=== PATIENT | male | born 1930 | race Caucasian/White ===

== ENCOUNTER → 2016-06-15 | Outpatient (CLI) | payer MEDICARE, OTHER ==
[2015-11-30 14:33] VITALS: BP 180/89
[~2016-06-15] MED LIST: ASCO500T2 PO; ASPI81TA50 PO; ATOR40TA59 PO; CYAN10002 IM; DOCU-27 PO; FERR325T72 PO; GLIP5TAB10 PO; LEVO100T5 PO; LISI40TA PO; LORA10TA68 PO; METF500T4 PO; METO25TA4 PO; NIAC500T PO; RIVA10TA PO; SITA100T PO
--- NOTE | 2016-06-15 17:17 | RAD ---
PA and lateral chest radiographs 06/15/2016 Clinical history: Productive cough for 3 weeks. PA and lateral digital radiographs of the chest were obtained. Comparison study is dated 06/28/2013. A pacemaker is unchanged position. The cardiac silhouette is mildly enlarged. Atherosclerotic calcification of the thoracic aorta is seen. No acute pulmonary infiltrate is noted. No pneumothorax or pleural effusion is seen. Degenerative changes are seen involving the thoracic spine. Impression: No acute pulmonary infiltrate is seen.
== END | disposition home or self-care (01) ==
LOC: DXRADRC 15:49
PROVIDERS: ATTEND Nurse Practitioner Family
DX: I70.0 Atherosclerosis of aorta (principal)
CPT/HCPCS: 71020

== ENCOUNTER 2017-04-30 10:12 | Emergency (ER) | payer MEDICARE, OTHER ==
[~2017-04-30 10:12] MED LIST changes: +DOCU-109 PO; -DOCU-27 PO
--- NOTE | 2017-04-30 10:52 | EKG ---
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
--- NOTE | 2017-04-30 11:13 | RAD ---
Chest radiograph 04/30/2017 12:46 PM Indication: Shortness of breath with weakness Comparison: Chest radiograph 06/15/2016 Technique: Single portable upright frontal view of the chest is provided. Findings: Evaluation is limited by motion. Cardiomediastinal silhouette is borderline in size, stable. Left chest wall cardiac device is in similar position.. No pleural effusions, pulmonary vascular congestion or pneumothorax. The lungs are clear. Osseous structures are normal. Impression: Evaluation is limited by motion. No acute cardiopulmonary process.
[2017-04-30 11:14] LABS: BASO # 0.1 x10^3/uL (0.0-0.2); BASO % 1 % (0-3); EOS # 0.2 x10^3/uL (0.0-0.7); EOS % 4 % (0-3); HEMATOCRIT 22.1 % (39.0-53.0); LYMPH # 0.7 x10^3/uL (1.0-4.8); LYMPH % 12 % (24-48); MEAN CORPUSCULAR HEMOGLOBIN 22 pg (25-35); MEAN CORPUSCULAR HGB CONC 30 g/dL (31-37); MEAN CORPUSCULAR VOLUME 75 fL (79-100); MONO # 0.4 x10^3/uL (0.0-1.1); MONO % 8 % (0-9); NEUT # 4.2 x10^3uL (1.8-7.7); NEUT % 75 % (31-73); PLATELET COUNT 194 x10^3/uL (140-400); RED BLOOD COUNT 2.97 x10^6/uL (4.30-5.70); RED CELL DISTRIBUTION WIDTH 18.2 % (11.5-14.5); WHITE BLOOD COUNT 5.6 x10^3/uL (4.0-11.0)
[2017-04-30 11:23] LABS: HEMOGLOBIN 6.7 g/dL (13.0-17.5)
[2017-04-30 11:35] LABS: ALBUMIN 3.4 g/dL (3.4-5.0); ALBUMIN/GLOBULIN RATIO 1.2 (1.0-1.7); CALCIUM 8.5 mg/dL (8.5-10.1); CREATININE 1.2 mg/dL (0.7-1.3); GFR 57.5; MAGNESIUM 2.2 mg/dL (1.8-2.4); POTASSIUM 4.2 mmol/L (3.5-5.1); TOTAL BILIRUBIN 0.4 mg/dL (0.2-1.0); TOTAL PROTEIN 6.3 g/dL (6.4-8.2)
--- NOTE | 2017-04-30 13:07 | PHYS DOC ---
Past History Past Medical History: A-Fib, CAD, Diabetes, High Cholesterol, Hypertension, Other Past Surgical History: Pacemaker, Other Alcohol Use: None Drug Use: None Adult General Chief Complaint Chief Complaint: SHORTNESS OF BREATH HPI HPI [87-year-old male patient with multiple medical problems and history of atrial fibrillation on Xarelto and previous aortic aneurysm surgery more than 10 years ago complaining of generalized weakness and shortness of breath for the last 2 weeks. Patient states he had intermittent episodes of exertional chest pain for the last 2 weeks that last for a short time and resolved with rest. Patient denies fever and chills, vomiting, tendencies and melena, urinary symptoms, cough and congestion. Patient lives in [facility] and her daughter visited him and drove him to this area last night. Patient's daughter states he looks byrd color like the same time that he had anemia and got blood transfusion without known reason for loosing normal at [facility]. Patient denies chest pain at this time. Review of Systems Review of Systems Constitutional: Denies fever or chills, complaining of generalized weakness [] Eyes: Denies change in visual acuity, redness, or eye pain [] HENT: Denies nasal congestion or sore throat [] Respiratory: Reports shortness of breath[] Cardiovascular: No additional information not addressed in HPI [] GI: Denies abdominal pain, nausea, vomiting, bloody stools or diarrhea [] : Denies dysuria or hematuria [] Musculoskeletal: Denies back pain or joint pain [] Integument: Denies rash or skin lesions [] Neurologic: Denies headache, focal weakness or sensory changes [] Endocrine: Denies polyuria or polydipsia [] All other systems were reviewed and found to be within normal limits, except as documented in this note. Allergies Allergies Allergies Coded Allergies Type Severity Reaction Last Updated Verified No Known Drug Allergies 10/15/15 No Physical Exam Physical Exam Constitutional: Mild distress, non-toxic appearance, pale, ill looking. [] HENT: Normocephalic, atraumatic, oropharynx moist, no oral exudates, nose normal. [] Eyes: PERRLA, EOMI, conjunctiva normal, no discharge. [] Neck: Normal range of motion, no tenderness, supple, no stridor. [] Cardiovascular: Irregularly irregular heartbeat with bradycardia, no murmur [] Lungs & Thorax: Bilateral breath sounds clear to auscultation [] Abdomen: Bowel sounds normal, soft, no tenderness, no masses, no pulsatile masses. [] Skin: Warm, dry, no erythema, no rash. [] Back: No tenderness, no CVA tenderness. [] Extremities: No tenderness, no cyanosis, no clubbing, ROM intact, lower extremity edema Neurologic: Alert and oriented X 3, normal motor function, normal sensory function, no focal deficits noted. [] Psychologic: Affect normal, judgement normal, mood normal. [] Current Patient Data Lab Results Laboratory Tests Test 04/30/17 10:48 White Blood Count 5.6 x10^3/uL (4.0-11.0) Red Blood Count 2.97 x10^6/uL (4.30-5.70) L Hemoglobin 6.7 g/dL (13.0-17.5) *L Hematocrit 22.1 % (39.0-53.0) L Mean Corpuscular Volume 75 fL (79-100) L Mean Corpuscular Hemoglobin 22 pg (25-35) L Mean Corpuscular Hemoglobin Concent 30 g/dL (31-37) L Red Cell Distribution Width 18.2 % (11.5-14.5) H Platelet Count 194 x10^3/uL (140-400) Neutrophils (%) (Auto) 75 % (31-73) H Lymphocytes (%) (Auto) 12 % (24-48) L Monocytes (%) (Auto) 8 % (0-9) Eosinophils (%) (Auto) 4 % (0-3) H Basophils (%) (Auto) 1 % (0-3) Neutrophils # (Auto) 4.2 x10^3uL (1.8-7.7) Lymphocytes # (Auto) 0.7 x10^3/uL (1.0-4.8) L Monocytes # (Auto) 0.4 x10^3/uL (0.0-1.1) Eosinophils # (Auto) 0.2 x10^3/uL (0.0-0.7) Basophils # (Auto) 0.1 x10^3/uL (0.0-0.2) Platelet Estimate Pending Prothrombin Time 11.2 SEC (9.4-11.4) Prothrombin Time INR 1.1 (0.9-1.1) PTT 22 SEC (23-33) L Sodium Level 142 mmol/L (136-145) Potassium Level 4.2 mmol/L (3.5-5.1) Chloride Level 106 mmol/L (98-107) Carbon Dioxide Level 24 mmol/L (21-32) Anion Gap 12 (6-14) Blood Urea Nitrogen 18 mg/dL (8-26) Creatinine 1.2 mg/dL (0.7-1.3) Estimated GFR (Cockcroft-Gault) 57.5 BUN/Creatinine Ratio 15 (6-20) Glucose Level 226 mg/dL (70-99) H Lactic Acid Level 2.1 mmol/L (0.4-2.0) H Calcium Level 8.5 mg/dL (8.5-10.1) Magnesium Level 2.2 mg/dL (1.8-2.4) Total Bilirubin 0.4 mg/dL (0.2-1.0) Aspartate Amino Transferase (AST) 21 U/L (15-37) Alanine Aminotransferase (ALT) 17 U/L (16-63) Alkaline Phosphatase 74 U/L (46-116) Creatine Kinase 73 U/L (39-308) Creatine Kinase MB (Mass) 0.9 ng/mL (0.0-3.6) Creatine Kinase MB Relative Index 1.2 % (0-4) Troponin I Quantitative 0.055 ng/mL (0-0.055) WX-Lbt-Q-Type Natriuretic Peptide 916 pg/mL (0-449) H Total Protein 6.3 g/dL (6.4-8.2) L Albumin 3.4 g/dL (3.4-5.0) Albumin/Globulin Ratio 1.2 (1.0-1.7) Lipase 141 U/L (73-393) EKG EKG EKG interpreted by me. EKG at 1037 showed atrial fibrillation at rate of 58, few PVCs, left axis deviation, left anterior fascicular block, nonspecific intraventricular block, no acute ST and T wave abnormality Radiology/Procedures Radiology/Procedures [] [address] [address] IMAGING REPORT Signed PATIENT: CECILIO CONTRERAS ACCOUNT: [id number] : 1930 LOCATION: ER AGE: 87 SEX: M EXAM STATUS: PRE ER ORD. PHYSICIAN: MARYLOU CARIAS MD REASON: generalized weakness PROCEDURE: PORTABLE CHEST 1V Chest radiograph 04/30/2017 12:46 PM Indication: Shortness of breath with weakness Comparison: Chest radiograph 06/15/2016 Technique: Single portable upright frontal view of the chest is provided. Findings: Evaluation is limited by motion. Cardiomediastinal silhouette is borderline in size, stable. Left chest wall cardiac device is in similar position.. No pleural effusions, pulmonary vascular congestion or pneumothorax. The lungs are clear. Osseous structures are normal. Impression: Evaluation is limited by motion. No acute cardiopulmonary process. DICTATED AND SIGNED BY: LAVELL ZAMORA MD DATE: 04/30/17 1110 CC: BROOKLYN BHAKTA APRN; MARYLOU CARIAS MD ~ Course & Med Decision Making Course & Med Decision Making Pertinent Labs and Imaging studies reviewed. (See chart for details) Evaluation of patient in ER showed 87-year-old female patient with history of atrial flutter patient on Xarelto and previous anemia brought in because of weakness for 2 weeks with episodes of shortness of breath and chest pain. Patient was pale and had hemoglobin of 6.7. Patient's family requesting transferring to [facility]. Dr. Gruber accepted transfer to [facility] at 1153. Dragon Disclaimer Dragon Disclaimer This electronic medical record was generated, in whole or in part, using a voice recognition dictation system. Departure Departure: Impression: Primary Impression: Severe anemia Additional Impressions: Generalized weakness Atrial fibrillation Elevated lactic acid level Uncontrolled diabetes mellitus Disposition: [facility] (At 1153) Condition: GUARDED Referrals: BROOKLYN BHAKTA APRN (PCP) Problem Qualifiers MARYLOU CARIAS MD Apr 30, 2017 13:07
[2017-04-30 13:28] LABS: PLT ESTIMATE ADEQUATE (ADEQUATE)
[2017-04-30 13:29] LABS: HYPOCHROMIA MOD; OVALOCYTES FEW; POIKILOCYTOSIS MOD; POLYCHROMASIA MOD
[2017-04-30 13:30] LABS: TEAR DROP CELLS OCC
[2017-04-30 13:32] LABS: ANISOCYTOSIS MOD; MICROCYTOSIS MOD
[2017-05-01 10:55] VITALS: BP 164/70
== END 2017-04-30 12:35 | disposition short-term general hospital (02) ==
LOC: ER 10:12
DX: D64.9 Anemia, unspecified (principal); R53.1 Weakness; R74.0 Nonspecific elevation of levels of transaminase and lactic acid dehydrogenase [LDH]; I48.91 Unspecified atrial fibrillation; E11.9 Type 2 diabetes mellitus without complications; I25.10 Atherosclerotic heart disease of native coronary artery without angina pectoris; I10 Essential (primary) hypertension; E78.00 Pure hypercholesterolemia, unspecified; Z95.0 Presence of cardiac pacemaker; Z79.01 Long term (current) use of anticoagulants
CPT/HCPCS: 36415; 71045; 80053; 82553; 83605; 83690; 83735; 83880; 84484; 85025; 85610; 85730; 86850; 86900; 86901; 93005; 99285-25

== ENCOUNTER 2017-06-02 15:57 | Inpatient (IN) | payer MEDICARE, OTHER ==
[~2017-06-02] VITALS: Ht 167.6 cm; Wt 93.1 kg
[2017-06-02] MEDS ORDERED: PANTOPRAZOLE IV 40 MG VIAL. IVP ONE (17:00)
--- NOTE | 2017-06-02 17:00 | PHYS DOC ---
Past History Past Medical History: Diabetes, High Cholesterol, Hypertension, Hyperthyroid, Other Past Surgical History: Pacemaker, Other Alcohol Use: None Drug Use: None Adult General Chief Complaint Chief Complaint: ABNORMAL LABS HPI HPI 87-year-old male patient with multiple medical problems and history of atrial fibrillation and previous aortic aneurysm surgery more than 10 years ago sent from his primary care physician office because of hemoglobin of 6.3. Patient was seen in this emergency room on April 10 and transferred to [facility]. Request of family members because of hemoglobin of 6.7 and had blood transfusion and EGD that showed nonactive bleeding of duodenal ulcer and treated Helicobacter infection. Patient complaining of having black stool and generalized weakness with exertion without vomiting blood, chest pain, shortness of breath. Review of Systems Review of Systems Constitutional: Denies fever or chills [] Eyes: Denies change in visual acuity, redness, or eye pain [] HENT: Denies nasal congestion or sore throat [] Respiratory: Denies cough or shortness of breath [] Cardiovascular: No additional information not addressed in HPI [] GI: Denies abdominal pain, nausea, vomiting, reports bloody stools] : Denies dysuria or hematuria [] Musculoskeletal: Denies back pain or joint pain [] Integument: Denies rash or skin lesions [] Neurologic: Denies headache, focal weakness or sensory changes [] Endocrine: Denies polyuria or polydipsia [] All other systems were reviewed and found to be within normal limits, except as documented in this note. Current Medications Current Medications Current Medications Medications (Trade) Dose Ordered Sig/Jessica Start Time Stop Time Status Last Admin Dose Admin Pantoprazole Sodium (Protonix Vial) 80 mg 1X ONCE 06/02/17 17:00 06/02/17 17:01 Allergies Allergies Allergies Coded Allergies Type Severity Reaction Last Updated Verified No Known Drug Allergies 10/15/15 No Physical Exam Physical Exam Constitutional: Mild distress, non-toxic appearance, pallor. [] HENT: Normocephalic, atraumatic, bilateral external ears normal, oropharynx moist, no oral exudates, nose normal. [] Eyes: PERRLA, EOMI, conjunctiva pale, no discharge. [] Neck: Normal range of motion, no tenderness, supple, no stridor. [] Cardiovascular:Heart rate regular rhythm, no murmur [] Lungs & Thorax: Bilateral breath sounds clear to auscultation [] Abdomen: Bowel sounds normal, soft, no tenderness, no masses, no pulsatile masses. [] Skin: Warm, dry, no erythema, no rash. [] Back: No tenderness, no CVA tenderness. [] Extremities: No tenderness, no cyanosis, no clubbing, ROM intact,bilateral lower extremity 1+ edema Neurologic: Alert and oriented X 3, normal motor function, normal sensory function, no focal deficits noted. [] EKG EKG EKG interpreted by me. EKG at 1645 showed a regular rhythm with no P waves, right andres axis, low voltage, nonspecific intraventricular block, no acute ST and T wave abnormality[] Radiology/Procedures Radiology/Procedures [] Course & Med Decision Making Course & Med Decision Making Pertinent Labs reviewed. (See chart for details) Additional patient in ER showed 87-year-old male patient sent from primary care physician office because of hemoglobin of 6.3. Patient had history of recent hospitalization because of anemia and duodenal ulcer without active bleeding. Dr. Pratt was informed at 1640 and agreed with plan of admission and blood transfusion. [] Dragon Disclaimer Dragon Disclaimer This electronic medical record was generated, in whole or in part, using a voice recognition dictation system. Departure Departure: Disposition: ADMITTED INPATIENT (At 1728) Admitting Physician: Gualberto Pratt Condition: STABLE Referrals: BROOKLYN BHAKTA APRN (PCP) MARYLOU CARIAS MD Jun 02, 2017 17:00
[2017-06-02 17:18] LABS: ALBUMIN 3.4 g/dL (3.4-5.0); ALBUMIN/GLOBULIN RATIO 1.1 (1.0-1.7); CALCIUM 8.8 mg/dL (8.5-10.1); CREATININE 1.3 mg/dL (0.7-1.3); GFR 52.5; POTASSIUM 4.1 mmol/L (3.5-5.1); TOTAL BILIRUBIN 0.4 mg/dL (0.2-1.0); TOTAL PROTEIN 6.5 g/dL (6.4-8.2)
--- NOTE | 2017-06-02 17:29 | EKG ---
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
[2017-06-02 19:10] VITALS: BP 188/73
[2017-06-02] MEDS ORDERED: LEVO175T5 PO (20:03)
[2017-06-02] MEDS ORDERED: PANT40TA5 PO (20:03)
[2017-06-02] MEDS ORDERED: LISI-334 PO (20:04)
[2017-06-02] MEDS ORDERED: METF500T4 PO (20:04)
[2017-06-02] MEDS ORDERED: ISOS30TA4 PO (20:06)
[2017-06-02] MEDS ORDERED: RIVA10TA PO (20:06)
[2017-06-02 20:21] VITALS: BP 171/61
[2017-06-02] MEDS ORDERED: diphenhydrAMINE HCL 25 MG CAPSULE PO PRN (20:30)
[2017-06-02] MEDS ORDERED: ACETAMINOPHEN 325 MG TABLET PO PRN (20:30)
[2017-06-02] MEDS ORDERED: PANTOPRAZOLE 40 MG TABLET. PO SCH (21:00)
[2017-06-02] MEDS: METOPROLOL TART IMMED RELEASE 25 MG TABLET PO SCH (21:06)
[2017-06-02] MEDS: ATORVASTATIN CALCIUM 20 MG TABLET PO SCH (21:06)
[2017-06-02] MEDS: glipiZIDE 5 MG TABLET PO SCH (21:07)
[2017-06-02 21:46] VITALS: BP 176/56
[2017-06-02 22:16] VITALS: BP 156/59
[2017-06-02 23:13] VITALS: BP 159/58
[2017-06-02 23:16] VITALS: BP 159/58
[2017-06-03] VITALS (10 sets, daily range): BP systolic 130–176; BP diastolic 48–74
[2017-06-03 00:34] LABS: BILIRUBIN,URINE NEG (NEG); CLARITY,URINE CLEAR; COLOR,URINE YELLOW; GLUCOSE,URINE 100 mg/dL (NEG)
[2017-06-03 00:35] LABS: BACTERIA,URINE 0 /HPF (0-FEW); NITRITE,URINE NEG (NEG); RBC,URINE RARE /HPF (0-2); UROBILINOGEN,URINE 0.2 mg/dL (0.2 mg/dL); WBC,URINE OCC /HPF (0-4)
[2017-06-03 06:51] LABS: BASO # 0.1 x10^3/uL (0.0-0.2); BASO % 1 % (0-3); EOS # 0.3 x10^3/uL (0.0-0.7); EOS % 3 % (0-3); HEMATOCRIT 25.6 % (39.0-53.0); HEMOGLOBIN 8.1 g/dL (13.0-17.5); LYMPH # 0.6 x10^3/uL (1.0-4.8); LYMPH % 7 % (24-48); MEAN CORPUSCULAR HEMOGLOBIN 25 pg (25-35); MEAN CORPUSCULAR HGB CONC 32 g/dL (31-37); MEAN CORPUSCULAR VOLUME 81 fL (79-100); MONO # 0.6 x10^3/uL (0.0-1.1); MONO % 7 % (0-9); NEUT # 7.5 x10^3uL (1.8-7.7); NEUT % 83 % (31-73); PLATELET COUNT 205 x10^3/uL (140-400); RED BLOOD COUNT 3.18 x10^6/uL (4.30-5.70)
[2017-06-03 07:05] LABS: ALBUMIN 3.4 g/dL (3.4-5.0); ALBUMIN/GLOBULIN RATIO 1.1 (1.0-1.7); CALCIUM 8.7 mg/dL (8.5-10.1); CREATININE 1.4 mg/dL (0.7-1.3); GFR 48.2; POTASSIUM 4.4 mmol/L (3.5-5.1); TOTAL BILIRUBIN 0.8 mg/dL (0.2-1.0); TOTAL PROTEIN 6.6 g/dL (6.4-8.2)
[2017-06-03] MEDS: LEVOTHYROXINE 175 MCG TABLET PO SCH (08:01)
[2017-06-03] MEDS: LINAGLIPTIN 5 MG TABLET PO SCH (08:02)
[2017-06-03] MEDS: LISINOPRIL 20 MG TABLET PO SCH (08:03)
[2017-06-03] MEDS: CETIRIZINE HCL 10 MG TABLET PO SCH (08:05)
[2017-06-03] MEDS: ISOSORBIDE MONONITRATE ER 30 MG TAB.ER.24H PO SCH (08:05)
[2017-06-03] MEDS: METOPROLOL TART IMMED RELEASE 25 MG TABLET PO SCH ×2 (08:06→20:03)
[2017-06-03] MEDS: PANTOPRAZOLE 40 MG TABLET. PO SCH ×2 (08:07→20:03)
[2017-06-03] MEDS: glipiZIDE 5 MG TABLET PO SCH ×2 (08:08→20:03)
[2017-06-03] MEDS: FERROUS SULFATE 325 MG TABLET. PO SCH (08:08)
[2017-06-03] MEDS: metFORMIN 500 MG TABLET PO SCH ×2 (08:08→17:11)
--- NOTE | 2017-06-03 13:15 | HP ---
ADMIT DATE: 06/03/2017 HISTORY OF PRESENT ILLNESS: The patient is an 87-year-old male patient, who apparently was seen at his primary care physician's office and was found to be anemic with a hemoglobin of 6.3, hematocrit 20.5. He is on Xarelto and aspirin and he was evaluated in the Emergency Room and was admitted. We held his Xarelto and aspirin and we typed and crossed and we planned to transfuse 2 units' of blood. The patient himself denied any complaint; however, he did complain eventually that he is having black stool and generalized weakness with exertion without vomiting blood, chest pain or shortness of breath. PAST MEDICAL HISTORY: His past medical history is significant for hypertension, hyperlipidemia, coronary artery disease, atrial fibrillation, gastritis, hemorrhoids, chronic constipation, anemia, low back pain, type 2 diabetes. PAST SURGICAL HISTORY: Past surgical history is significant for abdominal aortic aneurysm repair and endoscopy x 2. FAMILY HISTORY: Unremarkable. SOCIAL HISTORY: He lives with his daughter for 6 months of the year and the other 6 months he lives in [place] on his own. He does not drink alcohol or use recreational drugs. He quit smoking about 30 years ago. He smoked 35-pack per year. REVIEW OF SYSTEMS: As per history of present illness. The patient did complain of generalized weakness and melena stool, but denied any chest pain, shortness of breath, hematemesis or hematochezia. Denied any blurring of vision, cataract, glaucoma or macular degeneration. Denied any earache, tinnitus or sensorineural deafness. Denied any nosebleeds, stuffy nose or postnasal drip. Denied any sore throat, sore tongue, toothache, hoarseness of voice, difficulty swallowing. Denied any nausea, vomiting, diarrhea or constipation. Denied any hematemesis. Did complain of melena. Denied any dysuria, frequency or hematuria. Denied any chest pain, shortness of breath, cough, phlegm or hemoptysis. Denied any dizziness, lightheadedness. Did complain of generalized weakness. PHYSICAL EXAMINATION: GENERAL: On arrival to the Emergency Room, he was pale, but no jaundice, cyanosis, or thyromegaly. No jugular venous distension. No limb edema. VITAL SIGNS: Her heart rate was 56, blood pressure was ____, temperature was 99.4, respiratory rate was 19, and oxygen saturation was 100% on 2 liters of oxygen. HEAD, EYES, EARS, NOSE AND THROAT: Showed normocephalic, atraumatic. NECK: Supple. HEART: Showed normal first and second heart sounds with no gallop, rub or murmur. CHEST: Clear to auscultation. No crepitation or rhonchi. ABDOMEN: Was distended, soft, nontender. No guarding or rigidity. No organomegaly. Hernial orifice was intact. Bowel sounds normal. NEUROLOGIC: He was somewhat hard of hearing, otherwise all cranial nerves were intact. EXTREMITIES: He moves extremities without difficulty, ambulates without assistance or assistive devices. LABORATORY DATA: His lab work was done at his primary care physician's office showed that his white cell count was 7300, hemoglobin 6.3, hematocrit 20.5, MCV 77 and platelet count 237,000. MEDICATIONS: The patient is on following medications: He is on loratadine 10 mg once a day, ferrous sulfate 325 mg daily with breakfast, Xarelto 20 mg once a day, atorvastatin calcium 40 mg at bedtime, isosorbide mononitrate 30 mg extended release once a day, metoprolol tartrate 25 mg p.o. b.i.d., lisinopril 20 mg daily, aspirin 81 mg once a day, Protonix sodium 40 mg twice a day, metformin 500 mg twice a day, sitagliptin for Januvia 100 mg once a day, glipizide 5 mg twice a day, levothyroxine sodium 175 mcg daily. ASSESSMENT: So, in summary, this is an 87-year-old male patient, who was originally seen at his primary care physician and found to be anemic with the hemoglobin of 6.3, hematocrit 20.5. He is on Xarelto and aspirin. Apparently, he has similar episode recently where he was admitted to [facility] and was extensively investigated by both upper and lower gastrointestinal endoscopy. Basically, he was seen on 04/10/2017. At that time, he was transferred to [facility] at the family request. At that time, his hemoglobin was 6.7 and he received blood transfusion. EGD that showed no active bleeding, duodenal ulcer and was treated for Helicobacter pylori infection. PLAN: My plan is to type and cross 2 units of blood and transfuse repeat his labs and contact and will monitor his H and H and make sure that it is stable. I believe his indication for his anticoagulation is atrial fibrillation. I will contact his pharmacy tech customer service to see whether it is worthwhile continuing with Xarelto given that he now has a second episode of significant GI bleed. RUEL VALADEZ MD DR: HEATHER/vita JOB#: [id number] / [id number]
[2017-06-03 16:59] LABS: HEMATOCRIT 24.3 % (39.0-53.0); HEMOGLOBIN 7.6 g/dL (13.0-17.5)
[2017-06-03] MEDS: ATORVASTATIN CALCIUM 20 MG TABLET PO SCH (20:03)
[2017-06-03] MEDS: APIXABAN 5 MG TABLET. PO SCH (20:03)
--- NOTE | 2017-06-04 00:32 | PN ---
DATE: 06/03/2017 SUBJECTIVE: The patient is resting flat, comfortably in bed, in no apparent distress. Awake, alert. On questioning him, he denied any complaint. Nursing staff did not voice any concerns ____. He did receive 2 units of packed RBCs. PHYSICAL EXAMINATION: GENERAL: When I examined him, he was resting flat, comfortably in no apparent distress. VITAL SIGNS: His heart rate was 65, blood pressure 148/67, temperature was 98.1, respiratory rate was 18 and oxygen saturation was 98%. HEAD, EYES, EARS, NOSE AND THROAT: Normocephalic, atraumatic. NECK: Supple. HEART: Showed normal first and second sounds. No gallop, rub or murmur. CHEST: Clear to auscultation. No crepitation or rhonchi. ABDOMEN: Distended, soft, nontender. No guarding or rigidity. No organomegaly. Hernial orifice intact. Bowel sounds normal. NEUROLOGIC: He was awake, alert, responding appropriately. Cranial nerves intact. He moves extremities without difficulty, ambulates without assistance or assistive devices. His intake was 560, output was 700. LABORATORY DATA: As of this morning showed a white cell count of 9000, hemoglobin 8, hematocrit 26, MCV 81 and platelet count of 205,000. His serum sodium was 143, potassium 4.4, chloride 109, bicarbonate 24, anion gap of 10, BUN 25, creatinine 1.4, estimated GFR was 48 mL per minute. His glucose is 253, calcium was 8.7. Total bilirubin, AST, ALT, alkaline phosphatase were normal. Total protein 6.6, albumin was 3.4. His prothrombin time was 18.5, INR 1.8, ____ was 53. Urinalysis was essentially unremarkable. ASSESSMENT: In summary, this is an 87-year-old male patient who basically came with yet again another episode of GI bleed with acute blood loss anemia with a hemoglobin on admission of 6.3 as measured at his primary care physician's office. He received 2 units of packed RBCs. He is on Xarelto and aspirin. This is his second episode of anemia and he was investigated before at [facility] with the upper GI endoscopy. He was treated for Helicobacter pylori at that time. PLAN: My plan is to contact his daughter to find more information about his physician who treated him at [facility], specifically can speak with his wig maker to see whether Xarelto is really necessary given that this is second episode of bleeding. RUEL VALADEZ MD DR: HEATHER/vita JOB#: [id number] / [id number]
[2017-06-04 05:56] VITALS: BP_SYST 150; BP_SYST 158; BP_DIAS 63; BP_DIAS 72
[2017-06-04 06:10] LABS: CALCIUM 8.4 mg/dL (8.5-10.1); CREATININE 1.2 mg/dL (0.7-1.3); GFR 57.5; POTASSIUM 4.1 mmol/L (3.5-5.1); TOTAL BILIRUBIN 0.8 mg/dL (0.2-1.0); TOTAL PROTEIN 5.9 g/dL (6.4-8.2)
[2017-06-04 06:30] LABS: HEMATOCRIT 23.8 % (39.0-53.0); HEMOGLOBIN 7.6 g/dL (13.0-17.5); RED BLOOD COUNT 3.01 x10^6/uL (4.30-5.70); RED CELL DISTRIBUTION WIDTH 20.4 % (11.5-14.5); WHITE BLOOD COUNT 8.9 x10^3/uL (4.0-11.0)
[2017-06-04] MEDS: LEVOTHYROXINE 175 MCG TABLET PO SCH (07:52)
[2017-06-04] MEDS: FERROUS SULFATE 325 MG TABLET. PO SCH (07:52)
[2017-06-04] MEDS: metFORMIN 500 MG TABLET PO SCH (07:52)
[2017-06-04] MEDS: APIXABAN 5 MG TABLET. PO SCH (09:15)
[2017-06-04] MEDS: CETIRIZINE HCL 10 MG TABLET PO SCH (09:16)
[2017-06-04] MEDS: LINAGLIPTIN 5 MG TABLET PO SCH (09:16)
[2017-06-04] MEDS: PANTOPRAZOLE 40 MG TABLET. PO SCH (09:16)
[2017-06-04] MEDS: glipiZIDE 5 MG TABLET PO SCH (09:16)
[2017-06-04] MEDS: METOPROLOL TART IMMED RELEASE 25 MG TABLET PO SCH (09:21)
[2017-06-04] MEDS ORDERED: APIX5TAB3 PO (11:04)
[2017-06-04] MEDS: ISOSORBIDE MONONITRATE ER 30 MG TAB.ER.24H PO SCH (11:06)
[2017-06-04] MEDS: LISINOPRIL 20 MG TABLET PO SCH (11:07)
[2017-06-04 11:08] VITALS: BP 145/60
--- NOTE | 2017-06-04 13:25 | DS ---
DATE OF DISCHARGE: 06/04/2017 HOSPITAL COURSE: The patient is resting almost flat in bed, sleeping comfortably, in no apparent distress. On questioning him, he denied any complaint. Nursing staff did not voice any concern, stated that he has an uneventful night. The patient denied any nausea, vomiting, diarrhea or constipation. Denied any hematemesis, melena or hematochezia. His hemoglobin remained stable after receiving 2 units of packed RBCs. PHYSICAL EXAMINATION: GENERAL: When I examined him this morning, he was pale, but no jaundice, cyanosis or thyromegaly. No jugular venous distension. No limb edema. VITAL SIGNS: Her heart rate was 61, blood pressure was 116/43, temperature was 98.2, respiratory rate was 16, and oxygen saturation was 93% on room air. HEENT: Showed normocephalic, atraumatic. NECK: Supple. HEART: Showed normal first and second heart sounds with no gallop, rub or murmur. CHEST: Clear to auscultation. No crepitation or rhonchi. ABDOMEN: Distended, soft, nontender. No guarding or rigidity. No organomegaly. Hernial orifice intact. Bowel sounds normal. NEUROLOGIC: He was awake, alert, responding appropriately. Cranial nerves intact. He moves extremities without difficulty, ambulates without assistance or assistive devices. His intake was 2040, output was 500. LABORATORY DATA: As of this morning, his white cell count was 8900, hemoglobin 7.6, hematocrit 23.8, MCV 79 and platelet count of 172,000. His chemistry showed a serum sodium 141, potassium 4.1, chloride 109, bicarbonate 19, anion gap of 13, BUN 21, creatinine 1.2, estimated GFR was 57 mL per minute. His glucose 115, calcium was 8.4. Total bilirubin, AST, ALT, alkaline phosphatase were normal. Total protein was 5.9, albumin was 3. His prothrombin time was 18.5, INR 1.8, aPTT was 33. Urinalysis was unremarkable. DISCHARGE MEDICATIONS: The patient will be discharged home to continue on following medication: Apixaban 5 mg twice a day, atorvastatin calcium 40 mg at bedtime, ferrous sulfate 325 mg daily with breakfast, glipizide 5 mg p.o. b.i.d., isosorbide mononitrate (Imdur) 30 mg once a day, levothyroxine 175 mcg once a day, lisinopril 20 mg daily, loratadine (Claritin) 10 mg once a day, metformin 500 mg twice a day with meals, metoprolol tartrate 25 mg twice a day, Protonix 40 mg twice a day, sitagliptin phosphate (Januvia) 100 mg daily. I stopped his aspirin and rivaroxaban as recommended by Dr. Seth, the purifying plant operator. FINAL DISCHARGE DIAGNOSES: Acute blood loss anemia, status post transfusion 2 units of packed RBCs. He has multiple other medical problems including hypertension, hyperlipidemia, coronary artery disease, atrial fibrillation, gastritis, chronic constipation, type 2 diabetes mellitus and low back pain. The patient should follow with his plastics engineering teacher and the Gastroenterology office is arranging for him to be seen sooner than the previously arranged appointment. RUEL VALADEZ MD DR: HEATHER/vita JOB#: [id number] / [id number]
--- NOTE | 2017-06-04 22:12 | PN ---
DATE: 06/03/2017 ADDENDUM I did actually speak with his finance insurance manager, Dr. Cuello who recommended stopping Xarelto until the source of bleeding was found; however, I spoke with the command post superintendent, Dr. Seth who basically recommended to stop the Xarelto and aspirin, start him on Eliquis and to send stool for Helicobacter pylori antigen and that her office will make arrangement for him to be seen sooner than his previously arranged appointment to find out the source of bleeding. RUEL VALADEZ MD DR: HEATHER/vita JOB#: [id number] / [id number]
== END 2017-06-04 13:00 | disposition home or self-care (01) | DRG 378 ==
LOC: ER 15:57 → ICU 18:47
PROVIDERS: ADMIT Internal Medicine; ATTEND Internal Medicine
PROC: 30233N1 Transfusion of Nonautologous Red Blood Cells into Peripheral Vein, Percutaneous Approach (ICD-10-PCS; principal; 2017-06-02)
DX: K92.2 Gastrointestinal hemorrhage, unspecified (principal); D62 Acute posthemorrhagic anemia; I48.91 Unspecified atrial fibrillation; E11.9 Type 2 diabetes mellitus without complications; M54.5 Low back pain; E78.5 Hyperlipidemia, unspecified; I10 Essential (primary) hypertension; I25.10 Atherosclerotic heart disease of native coronary artery without angina pectoris; K59.09 Other constipation; Z79.01 Long term (current) use of anticoagulants; Z86.79 Personal history of other diseases of the circulatory system; Z87.891 Personal history of nicotine dependence
CPT/HCPCS: 36415; 80053; 81001; 82947; 84484; 85014; 85018; 85025; 85027; 85610; 85730; 86850; 86900; 86901; 86920; 87641; 93005; 96374; C9113; P9016; Q0163; 99285-25

== ENCOUNTER 2017-06-21 19:41 | Emergency (ER) | payer MEDICARE, OTHER ==
[~2017-06-21] VITALS: Ht 167.6 cm; Wt 90.5 kg
[~2017-06-21 19:41] MED LIST changes: +APIX5TAB3 PO; +ISOS30TA4 PO; +LEVO175T5 PO; +LISI-334 PO; +PANT40TA5 PO
--- NOTE | 2017-06-21 19:43 | ED.ADGEN ---
Past History Past Medical History: A-Fib, Anemia, CAD, Diabetes, GERD, High Cholesterol, Hypertension, Hyperthyroid, Other Past Surgical History: Pacemaker, Other Alcohol Use: None Drug Use: None Adult General Chief Complaint Chief Complaint " He was drinking the clean out for his GI - EGD and colon exam tomorrow at to see if they could find a bleeding site... for his anemia. He to be at tomorrow.. but he was vomiting... and his BP got up to 270/ 100's.. weve got medical people in the family.,.and they said bring him to the ED...." HPI HPI Patient is a 87 year old male who presents with above hx and complaints N/V while attempt to do Golyte like prep for EGD and Colon tomorrow at . Pt. previously transfused with PRBC last week. Pt. HGB was last check was 7. 9. Pt. developed Nausea and Vomiting and was unable to complete his bowel prep. Pt. was noted to have elevated HTN BP at home was 217/72 while having nausea and vomiting with prep. Pt. BP eventually 160/64 without tx. in ED. . Pt. Nausea and vomiting resolved. Pt. was found to have Hgb. of 8.8. Pt. Did have slight bump in trop. of 0.072. Pt. normally follows with Antonieta Cowan as primary. Pt has been holding his coag. meds for past two days. Review of Systems Review of Systems Constitutional: Denies fever or chills [] Eyes: Denies change in visual acuity, redness, or eye pain [] HENT: Denies nasal congestion or sore throat [] Respiratory: Denies cough or shortness of breath [] Cardiovascular: No additional information not addressed in HPI [] GI: Complaints of , nausea, vomiting and diarrhea [] : Denies dysuria or hematuria [] Musculoskeletal: Denies back pain or joint pain [] Integument: Denies rash or skin lesions [] Neurologic: Denies headache, focal weakness or sensory changes [] Endocrine: Denies polyuria or polydipsia [] All other systems were reviewed and found to be within normal limits, except as documented in this note. Family History Family History Non-contributory to presentation. Current Medications Current Medications Current Medications Medications (Trade) Dose Ordered Sig/Jessica Start Time Stop Time Status Last Admin Dose Admin Famotidine (Pepcid Vial) 20 mg 1X ONCE 06/21/17 20:45 06/21/17 20:46 DC 06/21/17 21:13 20 MG Info (Do NOT chart on this entry -- for MONITORING) 1 each PRN DAILY PRN 06/21/17 23:45 06/22/17 02:26 DC Iohexol (Omnipaque 240 Mg/ml) 50 ml 1X ONCE 06/22/17 00:00 06/22/17 00:01 DC 06/22/17 00:09 50 ML Iohexol (Omnipaque 300 Mg/ml) 75 ml 1X ONCE 06/22/17 00:00 06/22/17 00:01 DC 06/22/17 00:09 75 ML Ondansetron HCl (Zofran) 8 mg 1X ONCE 06/21/17 20:45 06/21/17 20:46 DC 06/21/17 21:13 8 MG Sodium Chloride 1,000 ml @ 1,000 mls/hr Q1H 06/21/17 20:22 06/21/17 21:21 DC 06/21/17 21:13 1,000 MLS/HR Allergies Allergies Allergies Coded Allergies Type Severity Reaction Last Updated Verified No Known Drug Allergies 06/21/17 No Physical Exam Physical Exam Constitutional: mild distress, non-toxic appearance. [] HENT: Normocephalic, atraumatic, bilateral external ears normal, oropharynx dry , no oral exudates, nose normal. [] Eyes: PERRLA, EOMI, conjunctiva normal, no discharge. [] Neck: Normal range of motion, no tenderness, supple, no stridor. [] Cardiovascular: Irregular Heart rate and rhythm, no murmur [ Occasional PVC per monitor. PMI to Lt. Pacer. Lungs & Thorax: Bilateral breath sounds equal at apex on auscultation [] Abdomen: Bowel sounds hyperactive, soft, Distended, no tenderness, no masses, no pulsatile masses. [] Old scar. Skin: Warm, dry, no erythema, no rash. Pale. Back: No tenderness, no CVA tenderness. [] Extremities: No tenderness, no cyanosis, no clubbing, ROM intact, no edema. [] Arthritic changes. Neurologic: Alert and oriented X 3, normal motor function, normal sensory function, no focal deficits noted. [] Psychologic: Affect anxious, judgement normal, mood normal. [] Current Patient Data Vital Signs Vital Signs Date Time Temp Pulse Resp B/P (MAP) Pulse Ox O2 Delivery O2 Flow Rate FiO2 06/21/17 23:46 63 24 173/59 (97) 95 Room Air Lab Results Laboratory Tests Test 06/21/17 20:46 06/21/17 21:19 06/21/17 23:20 White Blood Count 8.4 x10^3/uL (4.0-11.0) Red Blood Count 3.76 x10^6/uL (4.30-5.70) L Hemoglobin 8.8 g/dL (13.0-17.5) L Hematocrit 28.9 % (39.0-53.0) L Mean Corpuscular Volume 77 fL (79-100) L Mean Corpuscular Hemoglobin 23 pg (25-35) L Mean Corpuscular Hemoglobin Concent 30 g/dL (31-37) L Red Cell Distribution Width 20.6 % (11.5-14.5) H Platelet Count 286 x10^3/uL (140-400) Neutrophils (%) (Auto) 83 % (31-73) H Lymphocytes (%) (Auto) 6 % (24-48) L Monocytes (%) (Auto) 7 % (0-9) Eosinophils (%) (Auto) 3 % (0-3) Basophils (%) (Auto) 1 % (0-3) Neutrophils # (Auto) 7.0 x10^3uL (1.8-7.7) Lymphocytes # (Auto) 0.5 x10^3/uL (1.0-4.8) L Monocytes # (Auto) 0.6 x10^3/uL (0.0-1.1) Eosinophils # (Auto) 0.3 x10^3/uL (0.0-0.7) Basophils # (Auto) 0.1 x10^3/uL (0.0-0.2) Platelet Estimate Adequate (ADEQUATE) Polychromasia Present Hypochromasia Slight Anisocytosis Mod Microcytosis Slight Tear Drop Cells Occ Ovalocytes Few Prothrombin Time 11.3 SEC (9.4-11.4) Prothrombin Time INR 1.1 (0.9-1.1) PTT 24 SEC (23-33) Sodium Level 142 mmol/L (136-145) Potassium Level 4.1 mmol/L (3.5-5.1) Chloride Level 105 mmol/L (98-107) Carbon Dioxide Level 26 mmol/L (21-32) Anion Gap 11 (6-14) Blood Urea Nitrogen 17 mg/dL (8-26) Creatinine 1.2 mg/dL (0.7-1.3) Estimated GFR (Cockcroft-Gault) 57.5 Glucose Level 107 mg/dL (70-99) H Calcium Level 9.5 mg/dL (8.5-10.1) Total Bilirubin 0.8 mg/dL (0.2-1.0) Direct Bilirubin 0.2 mg/dL (0.0-0.2) Aspartate Amino Transferase (AST) 19 U/L (15-37) Alanine Aminotransferase (ALT) 18 U/L (16-63) Alkaline Phosphatase 85 U/L (46-116) Creatine Kinase 40 U/L (39-308) Creatine Kinase MB (Mass) < 0.5 ng/mL (0.0-3.6) Creatine Kinase MB Relative Index 1.3 % (0-4) Troponin I Quantitative 0.072 ng/mL (0-0.055) H 0.061 ng/mL (0-0.055) H Total Protein 7.6 g/dL (6.4-8.2) Albumin 4.0 g/dL (3.4-5.0) Lipase 110 U/L (73-393) Urine Collection Type Unknown Urine Color Yellow Urine Clarity Hazy Urine pH 5.5 Urine Specific [place] 1.025 Urine Protein 100 mg/dl (NEG-TRACE) Urine Glucose (UA) Neg mg/dL (NEG) Urine Ketones (Stick) Neg mg/dL (NEG) Urine Blood Neg (NEG) Urine Nitrite Neg (NEG) Urine Bilirubin Neg (NEG) Urine Urobilinogen Dipstick 0.2 mg/dL (0.2 mg/dL) Urine Leukocyte Esterase Neg (NEG) Urine RBC 1-2 /HPF (0-2) Urine WBC 1-4 /HPF (0-4) Urine Squamous Epithelial Cells Occ /LPF Urine Bacteria 0 /HPF (0-FEW) Urine Mucus Mod /LPF EKG EKG [] Radiology/Procedures Radiology/Procedures My interpretation of Acute Abd. show air fluid level, cardiomegaly, pacer, no free air under diaphragm. [] Course & Med Decision Making Course & Med Decision Making Pertinent Labs and Imaging studies reviewed. (See chart for details)- Pt. and requesting transfer to -\\ Discussed with transfer team at 1:15 Am- will call back refer. any acceptance. Transfer team accept pt at 1:38- Dr. Milton will be accepting pt. on Tele. floor. [] Final Impression Final Impression 1. Nausea and Vomiting 2. Afib. 3. Hypertension 4. Microcytic Anemia 5. Mild Elevation Trop. 6. Dehydration 7. DM 8. Ileus- Problems: Dragon Disclaimer Dragon Disclaimer This electronic medical record was generated, in whole or in part, using a voice recognition dictation system. KAILEE JOHNSON MD Jun 21, 2017 19:43
[2017-06-21 21:07] LABS: BASO # 0.1 x10^3/uL (0.0-0.2); BASO % 1 % (0-3); EOS # 0.3 x10^3/uL (0.0-0.7); EOS % 3 % (0-3); HEMATOCRIT 28.9 % (39.0-53.0); HEMOGLOBIN 8.8 g/dL (13.0-17.5); LYMPH # 0.5 x10^3/uL (1.0-4.8); LYMPH % 6 % (24-48); MEAN CORPUSCULAR HEMOGLOBIN 23 pg (25-35); MEAN CORPUSCULAR HGB CONC 30 g/dL (31-37); MEAN CORPUSCULAR VOLUME 77 fL (79-100); MONO # 0.6 x10^3/uL (0.0-1.1); MONO % 7 % (0-9); NEUT % 83 % (31-73); PLATELET COUNT 286 x10^3/uL (140-400); RED BLOOD COUNT 3.76 x10^6/uL (4.30-5.70); RED CELL DISTRIBUTION WIDTH 20.6 % (11.5-14.5); WHITE BLOOD COUNT 8.4 x10^3/uL (4.0-11.0)
[2017-06-21] MEDS: FAMOTIDINE 20 MG/2 ML VIAL IVP ONE (21:13)
[2017-06-21] MEDS: IV NORMAL SALINE 1,000ML 1,000 ML IV SCH (21:13)
[2017-06-21] MEDS: ONDANSETRON PF 4 MG/2 ML VIAL. IV ONE (21:13)
[2017-06-21 21:29] LABS: ALK PHOS 85 U/L (46-116); ALT (SGPT) 18 U/L (16-63); ANION GAP 11 (6-14); AST (SGOT) 19 U/L (15-37); BLOOD UREA NITROGEN 17 mg/dL (8-26); CALCIUM 9.5 mg/dL (8.5-10.1); CARBON DIOXIDE 26 mmol/L (21-32); CHLORIDE 105 mmol/L (98-107); CREATININE 1.2 mg/dL (0.7-1.3); DIRECT BILIRUBIN 0.2 mg/dL (0.0-0.2); GFR 57.5; GLUCOSE 107 mg/dL (70-99); LIPASE 110 U/L (73-393); POTASSIUM 4.1 mmol/L (3.5-5.1); SODIUM 142 mmol/L (136-145); TOTAL BILIRUBIN 0.8 mg/dL (0.2-1.0); TOTAL PROTEIN 7.6 g/dL (6.4-8.2)
[2017-06-21 22:16] LABS: BACTERIA,URINE 0 /HPF (0-FEW); BILIRUBIN,URINE NEG (NEG); CLARITY,URINE HAZY; COLOR,URINE YELLOW; GLUCOSE,URINE NEG (NEG); NITRITE,URINE NEG (NEG); SQUAMOUS EPITHELIAL CELL,UR OCC /LPF; UROBILINOGEN,URINE 0.2 mg/dL (0.2 mg/dL)
[2017-06-21 22:58] LABS: PLT ESTIMATE ADEQUATE (ADEQUATE)
[2017-06-21 22:59] LABS: ANISOCYTOSIS MOD; HYPOCHROMIA SLIGHT; MICROCYTOSIS SLIGHT; OVALOCYTES FEW; POLYCHROMASIA PRESENT; TEAR DROP CELLS OCC
--- NOTE | 2017-06-21 23:08 | EKG ---
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
--- NOTE | 2017-06-21 23:27 | EKG ---
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
[2017-06-21] MEDS ORDERED: CONTRAST GIVEN MC PRN (23:45)
[2017-06-22] MEDS: IOHEXOL 300 MG/ML 75 ML VIAL. IV ONE (00:09)
[2017-06-22] MEDS: IOHEXOL 240 MG/ML 50ML VIAL. PO ONE (00:09)
--- NOTE | 2017-06-22 00:40 | RAD ---
INDICATION: ABDOMINAL PAIN, ILEUS - ABNORMAL XRAY, HX OF AAA
GAVE OMNI 300 75ML IV, OMNI 240 30ML ORAL
SENT PREVIOUS CT FROM 11/2015 FOR COMPARISON COMPARISON: November 26, 2015 TECHNIQUE: Axial CT images obtained through the abdomen and pelvis with contrast. One or more of the following individualized dose reduction techniques were utilized for this examination: 1. Automated exposure control; 2. Adjustment of the mA and/or kV according to patient size; 3. Use of iterative reconstruction technique. FINDINGS: Partial visualization of pacemaker leads. Calcific atherosclerosis is identified. Postoperative changes to the abdominal aorta with graft at distal aorta and iliac. Gallstones are suspected. No intrahepatic bile duct dilation. No peripancreatic fluid collection. Spleen unremarkable. Repeat demonstration of large left renal cystic lesion measuring up to 16.7 cm. This causes mass effect on the left kidney which is displaced anteriorly. Multiple additional low-density lesions are seen throughout the left kidney and right kidney with the majority of these having a cystic appearance. There are additional low-density lesions on the right which could be cystic as well but some are too small to characterize. Urinary bladder is somewhat distended at time of exam. No periappendiceal inflammation. No definite dilated loops of bowel to suggest obstruction. Degenerative changes the spine. Sclerotic focus left iliac measuring approximately 16 mm. IMPRESSION: No definite evidence of a bowel obstruction or appendicitis. Repeat demonstration of very large cystic lesions the left kidney and to a lesser degree the right kidney. Postoperative changes to the abdominal aorta again seen with atherosclerotic disease. Electronically signed by: Kendall Fleming MD (06/22/2017 12:37 AM) [facility]
[2017-06-22 01:39] VITALS: BP 166/77
--- NOTE | 2017-06-22 07:52 | RAD ---
Single view chest and supine upright AP views abdomen 06/21/2017 Clinical indication: Nausea, vomiting and GI bleed history. Shortness of breath. Comparison: Abdominal radiograph 11/25/[address] abdomen and pelvis 06/21/2017 Findings: 3-lead left chest wall cardiac connection device. Cardiac and mediastinal silhouettes are unremarkable. No pleural effusion, pneumothorax or focal consolidation. There are differential air-fluid levels in the upright view of the abdomen. No gaseous dilated loops of bowel. No pneumoperitoneum. There are multiple scattered central abdominal surgical clips. Impression: 1. No acute cardiopulmonary abnormality. 2. A few differential air-fluid levels in the bowel, which can be a normal finding. No gaseous dilated small bowel loops to suggest bowel obstruction. Correlation with same day CT abdomen and pelvis is recommended.
== END 2017-06-22 02:21 | disposition short-term general hospital (02) ==
LOC: ER 19:41
DX: R11.2 Nausea with vomiting, unspecified (principal); I10 Essential (primary) hypertension; I48.91 Unspecified atrial fibrillation; D50.9 Iron deficiency anemia, unspecified; R79.89 Other specified abnormal findings of blood chemistry; E86.0 Dehydration; E11.9 Type 2 diabetes mellitus without complications; K56.7 Ileus, unspecified; I25.10 Atherosclerotic heart disease of native coronary artery without angina pectoris; K21.9 Gastro-esophageal reflux disease without esophagitis; E78.00 Pure hypercholesterolemia, unspecified; E05.90 Thyrotoxicosis, unspecified without thyrotoxic crisis or storm; Z95.0 Presence of cardiac pacemaker
CPT/HCPCS: 36415; 74022; 74177; 80048; 80076; 81001; 82553; 83690; 84484; 85025; 85045; 85610; 85730; 86850; 86900; 86901; 93005; 96361; 96374; 96375; 99285; J2405; Q9966; Q9967; S0028; J7030

== ENCOUNTER 2017-08-20 10:27 | Inpatient (IN) | payer MEDICARE, OTHER ==
[~2017-08-20] VITALS: Ht 167.6 cm; Wt 86.7 kg
[~2017-08-20 10:27] MED LIST changes: -METF500T4 PO; +METF500T5 PO
[2017-08-20] MEDS ORDERED: IV NORMAL SALINE 500ML 500 ML IV ONE (11:00)
--- NOTE | 2017-08-20 11:24 | PHYS DOC ---
Past History Past Medical History: A-Fib, Anemia, CAD, Diabetes, GERD, High Cholesterol, Hypertension, Hyperthyroid, Other Past Surgical History: Pacemaker, Other Alcohol Use: None Drug Use: None Adult General Chief Complaint Chief Complaint: NAUSEA/VOMITING/[facility] HPI 87-year-old male patient with multiple medical problem brought by his daughter because of episodes of nausea and vomiting for the last 3 days that usually happens after eating without diarrhea and constipation, abdominal pain, urinary symptoms, fever and chills. Patient had 1 episode of vomiting today. Patient denies urinary symptoms, chest pain, shortness of breath. Patient complaining of generalized weakness and anorexia. Patient seen by his primary care physician today and had IM Phenergan and sent to ER for more evaluation. Review of Systems Review of Systems Constitutional: Denies fever or chills [] Eyes: Denies change in visual acuity, redness, or eye pain [] HENT: Denies nasal congestion or sore throat [] Respiratory: Denies cough or shortness of breath [] Cardiovascular: No additional information not addressed in HPI [] GI: Reports nausea and vomiting, denies abdominal pain, bloody stools or diarrhea [] : Denies dysuria or hematuria [] Musculoskeletal: Denies back pain or joint pain [] Integument: Denies rash or skin lesions [] Neurologic: Denies headache, focal weakness or sensory changes [] Endocrine: Denies polyuria or polydipsia [] All other systems were reviewed and found to be within normal limits, except as documented in this note. Current Medications Current Medications Current Medications Medications (Trade) Dose Ordered Sig/Jessica Start Time Stop Time Status Last Admin Dose Admin Sodium Chloride 500 ml @ 0 mls/hr 1X ONCE 08/20/17 11:00 08/20/17 11:01 DC Allergies Allergies Allergies Coded Allergies Type Severity Reaction Last Updated Verified No Known Drug Allergies 06/21/17 No Physical Exam Physical Exam Constitutional: Well developed, well nourished,mild distress, non-toxic appearance. [] HENT: Normocephalic, atraumatic, oropharynx moist, no oral exudates, nose normal. [] Eyes: PERRLA, EOMI, conjunctiva normal, no discharge. [] Neck: Normal range of motion, no tenderness, supple, no stridor. [] Cardiovascular: Irregularly irregular no murmur [] Lungs & Thorax: Bilateral breath sounds clear to auscultation [] Abdomen: Bowel sounds normal, soft, no tenderness, no masses, no pulsatile masses. [] Skin: Warm, dry, no erythema, no rash. [] Back: No tenderness, no CVA tenderness. [] Extremities: No tenderness, no cyanosis, no clubbing, ROM intact, 1+ bilateral lower extremity edema. [] Neurologic: Alert and oriented X 3, normal motor function, normal sensory function, no focal deficits noted. [] Psychologic: Affect normal, judgement normal, mood normal. [] EKG EKG EKG interpreted by me. EKG at 1047 showed a of patient at rate of 60, left axis deviation, right bundle branch block, RVH, poor practice in inferior and anterior leads, no acute ST and T-wave abnormalities Radiology/Procedures Radiology/Procedures [][address] [address] IMAGING REPORT Signed PATIENT: CECILIO CONTRERAS ACCOUNT: [id number] : 1930 LOCATION: ER AGE: 87 SEX: M EXAM STATUS: REG ER ORD. PHYSICIAN: MARYLOU CARIAS MD REASON: nausea and vomiting PROCEDURE: PORTABLE CHEST 1V AP portable chest radiograph 08/20/2017 Clinical History: Chest pain for one day. Nausea and vomiting. An AP erect portable digital radiograph of the chest was obtained. Comparison study is dated 04/30/2017. A pacemaker is unchanged in position. The cardiac silhouette is mildly enlarged. Atherosclerotic calcification of the thoracic aorta is seen. The thoracic aorta is mildly tortuous. No acute pulmonary infiltrate is seen. No pleural effusion or pneumothorax is noted. Degenerative changes are seen involving the thoracic spine and both shoulders. IMPRESSION: No acute abnormality is seen. Electronically signed by: Aly Crawley MD (08/20/2017 11:20 AM) [facility] DICTATED AND SIGNED BY: ALY CRAWLEY MD DATE: 08/20/17 1118 CC: BROOKLYN BHAKTA APRN; MARYLOU CARIAS MD ~ Course & Med Decision Making Course & Med Decision Making Pertinent Labs and Imaging studies reviewed. (See chart for details) Evaluation of patient in ER showed 87-year-old male patient with multiple medical problems brought in because of nausea and vomiting for the last 3 days. Patient had generalized weakness and chronic atrial fibrillation without episodes of nausea and vomiting in ER after had IM Phenergan at his primary care physician office. Patient had unremarkable exam of his abdomen. EKG showed atrial flutter patient without acute ST and T-wave abnormalities. Labs showed troponin of 0.094 with history of mild elevation of troponin. Patient did not have chest pain in ER. Patient currently taking Eliquis and had history of GI bleeding and aspirin was not given in ER. Dr. Pratt informed at 1308 and agreed with plan of admission. [] Dragon Disclaimer Dragon Disclaimer This electronic medical record was generated, in whole or in part, using a voice recognition dictation system. Departure Departure: Impression: Primary Impression: Nausea and vomiting Additional Impressions: Elevated troponin I level CHF (congestive heart failure) Atrial fibrillation Disposition: 09 ADMITTED INPATIENT (At 1310) Admitting Physician: Gualberto Pratt (At 1308) Condition: IMPROVED Referrals: BROOKLYN BHAKTA APRN (PCP) Problem Qualifiers MARYLOU CARIAS MD Aug 20, 2017 11:23
[2017-08-20 12:25] LABS: CLARITY,URINE HAZY; COLOR,URINE YELLOW
[2017-08-20 12:26] LABS: BACTERIA,URINE 0 /HPF (0-FEW); BILIRUBIN,URINE NEG (NEG); GLUCOSE,URINE 100 mg/dL (NEG); NITRITE,URINE NEG (NEG); RBC,URINE 0 /HPF (0-2); UROBILINOGEN,URINE 0.2 mg/dL (0.2 mg/dL); WBC,URINE 0 /HPF (0-4)
[2017-08-20 12:27] LABS: AMORPHOUS SEDIMENT,UR PRESENT /HPF; SQUAMOUS EPITHELIAL CELL,UR FEW /LPF
[2017-08-20 12:40] LABS: BASO % 1 % (0-3); EOS # 0.2 x10^3/uL (0.0-0.7); EOS % 4 % (0-3); HEMATOCRIT 40.2 % (39.0-53.0); HEMOGLOBIN 13.1 g/dL (13.0-17.5); LYMPH # 0.5 x10^3/uL (1.0-4.8); LYMPH % 8 % (24-48); MEAN CORPUSCULAR HEMOGLOBIN 28 pg (25-35); MEAN CORPUSCULAR HGB CONC 33 g/dL (31-37); MEAN CORPUSCULAR VOLUME 86 fL (79-100); MONO # 0.5 x10^3/uL (0.0-1.1); MONO % 9 % (0-9); NEUT # 4.6 x10^3uL (1.8-7.7); NEUT % 78 % (31-73); PLATELET COUNT 186 x10^3/uL (140-400); RED BLOOD COUNT 4.71 x10^6/uL (4.30-5.70); RED CELL DISTRIBUTION WIDTH 29.1 % (11.5-14.5); WHITE BLOOD COUNT 5.9 x10^3/uL (4.0-11.0)
[2017-08-20 12:42] LABS: ALBUMIN 3.9 g/dL (3.4-5.0); ALBUMIN/GLOBULIN RATIO 1.2 (1.0-1.7); CALCIUM 8.9 mg/dL (8.5-10.1); CREATININE 1.1 mg/dL (0.7-1.3); GFR 63.6; POTASSIUM 4.1 mmol/L (3.5-5.1); TOTAL PROTEIN 7.2 g/dL (6.4-8.2)
[2017-08-20 12:50] LABS: % EOS 3 % (0-5); % LYMPHS 13 % (24-48); % MONOS 7 % (0-10); % SEGS 77 % (35-66); ANISOCYTOSIS MARKED; PLT ESTIMATE ADEQUATE (ADEQUATE)
[2017-08-20 12:51] LABS: MICROCYTOSIS MARKED; SPHEROCYTES OCC
[2017-08-20 12:53] LABS: POLYCHROMASIA SLIGHT
[2017-08-20 14:42] VITALS: BP 186/87
[2017-08-20] MEDS: metFORMIN 500 MG TABLET PO SCH (17:00)
[2017-08-20] MEDS: glipiZIDE 5 MG TABLET PO SCH (17:04)
[2017-08-20 19:00] VITALS: BP 185/75
--- NOTE | 2017-08-20 19:30 | EKG ---
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
[2017-08-20] MEDS: METOPROLOL TART IMMED RELEASE 25 MG TABLET PO SCH (20:47)
[2017-08-20] MEDS: PANTOPRAZOLE 40 MG TABLET. PO SCH (20:47)
[2017-08-20] MEDS: APIXABAN 5 MG TABLET. PO SCH (20:47)
[2017-08-20] MEDS: ATORVASTATIN CALCIUM 20 MG TABLET PO SCH (20:47)
--- NOTE | 2017-08-20 21:05 | HP ---
ADMIT DATE: 08/20/2017 HISTORY OF PRESENT ILLNESS: The patient is an 87-year-old male patient who was brought to the Emergency Room by his daughter because of episodes of nausea and vomiting that has been going on for the last 3 days that usually happens after eating without diarrhea or constipation. He had one episode of vomiting today. He apparently was seen by his primary care physician and was sent to Emergency Room Department for further evaluation. He did complain of generalized weakness, anorexia. He was extensively investigated in the Emergency Room. His beta natriuretic peptide was 2566; however, his troponin was elevated at 0.094 and was admitted to do 2 more sets of cardiac enzymes and to consult the cardiology team. PAST MEDICAL HISTORY: His past medical history is significant for hypertension, hyperlipidemia, coronary artery disease, atrial fibrillation, gastritis, hemorrhoids, chronic constipation, low back pain, and type 2 diabetes. PAST SURGICAL HISTORY: Past surgical history is significant for abdominal aortic aneurysm repair and endoscopy. He has also had permanent pacemaker placement, bilateral cataract extraction and thyroidectomy. ALLERGIES: He has no known drug allergies. FAMILY HISTORY: Family history is significant for one brother who is paralyzed. The other brother was younger at the age of 77 because of myocardial infarction. Father in his 90s because of congestive heart failure and myocardial infarction. Mother in her 80s because of myocardial infarction. SOCIAL HISTORY: He is , has one daughter and one son who has already had heart attack. He quit smoking about 35 years ago. He does not drink alcohol. He used to work in the [employer]. He apparently used to live with his daughter for 6 months of the year and the other months he lives in [place] on his own. He smoked 35 packs per year. REVIEW OF SYSTEMS: As per history of present illness. PHYSICAL EXAMINATION: GENERAL: On arrival to the Emergency Room, he looked well and was clearly in no apparent respiratory distress. No pallor, jaundice, cyanosis, or thyromegaly. No jugular venous distension. No lower limb edema. VITAL SIGNS: His heart rate was 65, blood pressure was 148/67, temperature was 98.1, respiratory rate was 18, and oxygen saturation was 98%. HEAD, EYES, EARS, NOSE AND THROAT: Showed normocephalic, atraumatic. NECK: Supple. HEART: Showed normal first and second heart sounds. No gallop, rub or murmur. CHEST: Clear to auscultation. No crepitation or rhonchi. ABDOMEN: Distended, soft, nontender. No guarding or rigidity. No organomegaly. Hernial orifice is intact. Bowel sounds normal. NEUROLOGIC: He is awake, alert, responding appropriately. All cranial nerves are intact. EXTREMITIES: He moves extremities without difficulty. LABORATORY DATA: His lab work on admission showed a white cell count of 5900, hemoglobin 13, hematocrit 40, MCV 86, and platelet count of 186,000. His chemistry showed a serum sodium 143, potassium 4.1, chloride 106, bicarbonate 25, anion gap of 12, BUN 11, creatinine 1.1, estimated GFR was 63 mL per minute, his glucose 105, calcium was 8.9. Total bilirubin, AST, ALT, alkaline phosphatase was normal. His troponin was 0.094. Beta natriuretic peptide was 2566. Total protein 7.2, albumin 3.9. Lipase was 97. His prothrombin time was 11.6, INR 1.1. His urinalysis showed the urine was yellow, hazy with the pH of 7.5, specific gravity of 1.015, large amount of protein, a small amount of glucose, negative for ketones, blood, nitrite, bilirubin and leukocyte esterase. There are no rbc's. no wbc's, and no bacteria. IMPRESSION: In summary, this is an 87-year-old male patient who came with recurrent bouts of nausea, vomiting. His lab work seems to be within acceptable range, in fact there is no evidence that he is dehydrated; however, his troponin was elevated at 0.094. His beta natriuretic peptide is elevated; however, he clinically does not seem to be in any respiratory distress, in fact, his chest x-ray showed that he has no acute abnormalities seen. The cardiac silhouette is mildly enlarged. The thoracic aorta is mildly tortuous, no acute pulmonary infiltrate is seen. No pleural effusion, pneumothorax noted. Degenerative changes are seen involving the thoracic spine of both shoulders. PLAN: My plan is to do 2 more sets of cardiac enzymes and check his fasting lipid profile tomorrow and consult the cardiology team. RUEL VALADEZ MD DR: HEATHER/vita JOB#: [id number] / [id number]
[2017-08-20 22:42] VITALS: BP 174/84
[2017-08-21 05:55] VITALS: BP 179/83
--- NOTE | 2017-08-21 07:20 | PDOC ---
PROVIDER NOTE PROVIDER NOTE PROVIDER NOTE CARDIOLOGY CONSULT NOTE REASON FOR CONSULTATION: ELEVATED TROPONIN HPI: 87 y.o man admitted for presumed nausea/vomiting. He is very hard of hearing and unable to provide much history. Denies any chest pain. No current nausea or vomiting. Prior history of known AAA repair with stable appearance at last visit in 06/2017. Pmhx: 1. chronic afib s/p dual chamber pacemake 2. HTN 3. Presumed CAD Sochx: Retired. lives with daughter. ALL: NKDA Meds reviewed: Lisinopril, Imdur, Atorvastatin, Eliquis and Metoprolol. ROS: Not obtained due to mental status. GEN: He appears quite confused and unable to provide any good history. he was naked in bed under the sheets Constitutional: Well developed, well nourished, no acute distress, non-toxic appearance. [] HENT: Normocephalic, atraumatic [] Eyes: PERRLA, EOMI, [] Neck: Normal range of motion, no tenderness, supple, no stridor. [] Cardiovascular:Heart rate regular rhythm, no murmur [] Lungs & Thorax: Bilateral breath sounds clear to auscultation [] Abdomen: Bowel sounds normal, soft, no tenderness, no masses, no pulsatile masses. [] Skin: Warm, dry, no erythema, no rash. [] Back: No tenderness, no CVA tenderness. [] Extremities: No tenderness, no cyanosis, no clubbing, ROM intact, no edema. [] Labs reviewed: Mild trop elevation. Minimal BNP elevation EKG - Afib with controlled response. Impression: 1. Elevated trop - likely demand mediated. No acute significant ischemic symptoms or EKG changes 2. Known PAD - s/p aortobifem graft - stable per CT scan in 06/2017 3. Probable CAD 4. SSS with chronic afib - s/p dual chamber pacemaker. 5. HTN 6. Dyslipidemia 7. Metabolic encephalopathy RECS 1. Continue current medical therapy 2. Await records from [facility] or family to determine need for any further assessment. 3. If he has not had a recent echo, it would be appropriate to consider an echo. 4. He does not appear to be in significant heart failure, no need for aggressive diuresis. 5. He seems like he has chronic abdominal pain issues, no significant findings in recent CT on 06/2017. Supportive care from CV standpoint. Thanks for consultation. Once OSH records available for review, will determine DC plans. PANCHO MCGOVERN MD Aug 21, 2017 07:20
[2017-08-21] MEDS: glipiZIDE 5 MG TABLET PO SCH ×2 (07:57→16:51)
[2017-08-21] MEDS: LEVOTHYROXINE 175 MCG TABLET PO SCH (07:57)
[2017-08-21] MEDS: metFORMIN 500 MG TABLET PO SCH ×2 (07:57→16:51)
[2017-08-21 08:32] LABS: CALCIUM 9.1 mg/dL (8.5-10.1); POTASSIUM 4.6 mmol/L (3.5-5.1)
[2017-08-21] MEDS: LINAGLIPTIN 5 MG TABLET PO SCH (08:35)
[2017-08-21] MEDS: CETIRIZINE HCL 10 MG TABLET PO SCH (08:35)
[2017-08-21] MEDS: PANTOPRAZOLE 40 MG TABLET. PO SCH ×2 (08:35→21:00)
[2017-08-21] MEDS: APIXABAN 5 MG TABLET. PO SCH ×2 (08:35→21:01)
[2017-08-21] MEDS: ISOSORBIDE MONONITRATE ER 30 MG TAB.ER.24H PO SCH (08:36)
[2017-08-21] MEDS: LISINOPRIL 20 MG TABLET PO SCH (08:36)
[2017-08-21] MEDS: METOPROLOL TART IMMED RELEASE 25 MG TABLET PO SCH ×2 (08:36→21:01)
[2017-08-21 10:25] VITALS: BP 174/69
[2017-08-21 14:59] VITALS: BP 137/64
[2017-08-21 19:00] VITALS: BP 163/66
[2017-08-21] MEDS: ATORVASTATIN CALCIUM 20 MG TABLET PO SCH (21:01)
[2017-08-21 22:28] VITALS: BP 176/66
--- NOTE | 2017-08-22 00:38 | PN ---
DATE: 08/21/2017 SUBJECTIVE: The patient is resting, slightly propped up, sleeping comfortably in no apparent distress. He is hard of hearing, but apparently has had no further episodes of nausea or vomiting. He has eaten his breakfast and lunch without any difficulty. He has been up and about without difficulty. He was evaluated by the Cardiology team and the plan is to await the records from , meanwhile to continue his medication and arrange for an echocardiogram. PHYSICAL EXAMINATION: GENERAL: When I examined him this afternoon, he looked well and was clearly in no apparent respiratory distress, pale, but no jaundice, cyanosis or thyromegaly. No jugular venous distention. No lower limb edema. VITAL SIGNS: His heart rate was 55, blood pressure was 174/69, temperature was 98.1, respiratory rate 20 and oxygen saturation was 94%. HEAD, EYES, EARS, NOSE AND THROAT: Showed normocephalic, atraumatic. NECK: Supple. HEART: Showed normal first and second sounds with no gallop, rub or murmur. CHEST: Clear to auscultation. No crepitation or rhonchi. ABDOMEN: Distended, soft, nontender. No guarding or rigidity. No organomegaly. Hernial orifice intact. Bowel sounds normal. NEUROLOGIC: He was sleepy, but arousable, hard of hearing, but otherwise all cranial nerves are intact. He moves extremities without difficulty, ambulates without assistance or assistive devices. His intake over the last 24 hours was incompletely recorded. LABORATORY DATA: As of this morning showed a serum sodium 139, potassium 4.6, chloride 106, bicarbonate 23, anion gap of 10, BUN 14, creatinine 1. Estimated GFR was 71 mL per minute. His glucose 114. Calcium was 9.1. His 3 sets of cardiac enzymes were 0.094, 0.083 and 0.086. His fasting lipid profile showed the serum triglycerides of 88. Total cholesterol 114, LDL was 55, VLDL was 17 and HDL was 42 and the ratio of 2. ASSESSMENT: Recurrent bouts of nausea and vomiting subsided as well as abdominal pain, elevated cardiac enzyme, beta natriuretic peptide elevated; however, clinically does not seem to be in respiratory distress. No evidence of any congestive heart failure. PLAN: My plan is to arrange for him to have an echocardiogram, await the records from [facility] and hopefully there is no need for further investigation. He can be discharged home tomorrow. RUEL VALADEZ MD DR: HEATHER/vita JOB#: [id number] / [id number]
[2017-08-22 05:58] VITALS: BP 167/64
[2017-08-22 06:11] LABS: CALCIUM 8.6 mg/dL (8.5-10.1); CREATININE 1.2 mg/dL (0.7-1.3); GFR 57.5; POTASSIUM 3.8 mmol/L (3.5-5.1)
[2017-08-22] MEDS: LEVOTHYROXINE 175 MCG TABLET PO SCH (07:53)
[2017-08-22] MEDS: glipiZIDE 5 MG TABLET PO SCH (07:54)
[2017-08-22] MEDS: metFORMIN 500 MG TABLET PO SCH (07:54)
[2017-08-22] MEDS: METOPROLOL TART IMMED RELEASE 25 MG TABLET PO SCH (07:54)
[2017-08-22] MEDS: LISINOPRIL 20 MG TABLET PO SCH (07:55)
[2017-08-22] MEDS: LINAGLIPTIN 5 MG TABLET PO SCH (07:55)
[2017-08-22] MEDS: APIXABAN 5 MG TABLET. PO SCH (07:55)
[2017-08-22] MEDS: CETIRIZINE HCL 10 MG TABLET PO SCH (07:55)
[2017-08-22] MEDS: PANTOPRAZOLE 40 MG TABLET. PO SCH (07:55)
[2017-08-22] MEDS: ISOSORBIDE MONONITRATE ER 30 MG TAB.ER.24H PO SCH (07:56)
--- NOTE | 2017-08-22 09:35 | PDOC ---
PROGRESS NOTES Diagnosis Problem Problems Medical Problems: (1) Atrial fibrillation Status: Acute (2) CHF (congestive heart failure) Status: Acute (3) Elevated troponin I level Status: Acute (4) Nausea and vomiting Status: Acute Assessment Problems Medical Problems: (1) Atrial fibrillation Status: Acute (2) CHF (congestive heart failure) Status: Acute (3) Elevated troponin I level Status: Acute (4) Nausea and vomiting Status: Acute 1. Elevated trop - likely demand mediated. No acute significant ischemic symptoms or EKG changes. No anginal symptoms. Will follow up with primary shoe reconditioner for outpatient ischemic workup when discharged home. 2. Known PAD - s/p aortobifem graft - stable per CT scan in 06/2017 3. Probable CAD - no prior cath, Last echo with normal LVEF in 04/2017. 4. SSS with chronic afib - s/p dual chamber pacemaker ([employer]) - will interrogate for function. 5. HTN uncontrolled. - Increase lisinopril. add norvasc. 6. Dyslipidemia - continue statin. Lipids well controlled. 7. Metabolic encephalopathy Subjective denies chest pain, dyspnea or palpitations. No arrhythmias by tele monitor. Objective Echo 05/02/17 Normal LVEF 55-60% Mild AI mod dilatation of aortic root Vital Signs Date Time Temp Pulse Resp B/P (MAP) Pulse Ox O2 Delivery O2 Flow Rate FiO2 08/22/17 07:56 75 167/64 08/22/17 05:58 98.6 20 94 Room Air 08/21/17 10:25 Intake and Output 08/22/17 07:00 Intake Total 740 ml Balance 740 ml Intake Oral 740 ml # Voids 2 Abdomen: Normal bowel sounds, Soft, No tenderness Heart: Regular rate, Normal S1, Normal S2 Extremities: No cyanosis, Normal pulses General: Alert, Oriented X3, Cooperative, No acute distress Lungs: Other (mildly decreased bases, o/w clear) Neuro: Normal speech, Strength at 5/5 X4 ext Psych/Mental Status: Mental status NL, Mood NL Review of Relevant I have reviewed the following items roger (where applicable) has been applied. Labs Laboratory Tests Test 08/20/17 11:42 08/20/17 14:47 08/20/17 17:11 08/20/17 19:20 White Blood Count 5.9 x10^3/uL (4.0-11.0) Red Blood Count 4.71 x10^6/uL (4.30-5.70) Hemoglobin 13.1 g/dL (13.0-17.5) Hematocrit 40.2 % (39.0-53.0) Mean Corpuscular Volume 86 fL (79-100) Mean Corpuscular Hemoglobin 28 pg (25-35) Mean Corpuscular Hemoglobin Concent 33 g/dL (31-37) Red Cell Distribution Width 29.1 % (11.5-14.5) Platelet Count 186 x10^3/uL (140-400) Neutrophils (%) (Auto) 78 % (31-73) Lymphocytes (%) (Auto) 8 % (24-48) Monocytes (%) (Auto) 9 % (0-9) Eosinophils (%) (Auto) 4 % (0-3) Basophils (%) (Auto) 1 % (0-3) Neutrophils # (Auto) 4.6 x10^3uL (1.8-7.7) Lymphocytes # (Auto) 0.5 x10^3/uL (1.0-4.8) Monocytes # (Auto) 0.5 x10^3/uL (0.0-1.1) Eosinophils # (Auto) 0.2 x10^3/uL (0.0-0.7) Basophils # (Auto) 0.0 x10^3/uL (0.0-0.2) Segmented Neutrophils % 77 % (35-66) Lymphocytes % 13 % (24-48) Monocytes % 7 % (0-10) Eosinophils % 3 % (0-5) Platelet Estimate Adequate (ADEQUATE) Polychromasia Slight Anisocytosis Marked Microcytosis Marked Spherocytes Occ Prothrombin Time 11.6 SEC (9.4-11.4) Prothromb Time International Ratio 1.1 (0.9-1.1) Urine Collection Type Void Urine Color Yellow Urine Clarity Hazy Urine pH 7.5 Urine Specific [place] 1.015 Urine Protein 100 mg/dl (NEG-TRACE) Urine Glucose (UA) 100 mg/dL (NEG) Urine Ketones (Stick) Neg mg/dL (NEG) Urine Blood Neg (NEG) Urine Nitrite Neg (NEG) Urine Bilirubin Neg (NEG) Urine Urobilinogen Dipstick 0.2 mg/dL (0.2 mg/dL) Urine Leukocyte Esterase Neg (NEG) Urine RBC 0 /HPF (0-2) Urine WBC 0 /HPF (0-4) Urine Squamous Epithelial Cells Few /LPF Urine Amorphous Sediment Present /HPF Urine Bacteria 0 /HPF (0-FEW) Sodium Level 143 mmol/L (136-145) Potassium Level 4.1 mmol/L (3.5-5.1) Chloride Level 106 mmol/L (98-107) Carbon Dioxide Level 25 mmol/L (21-32) Anion Gap 12 (6-14) Blood Urea Nitrogen 11 mg/dL (8-26) Creatinine 1.1 mg/dL (0.7-1.3) Estimated GFR (Cockcroft-Gault) 63.6 BUN/Creatinine Ratio 10 (6-20) Glucose Level 105 mg/dL (70-99) Calcium Level 8.9 mg/dL (8.5-10.1) Total Bilirubin 1.0 mg/dL (0.2-1.0) Aspartate Amino Transf (AST/SGOT) 19 U/L (15-37) Alanine Aminotransferase (ALT/SGPT) 18 U/L (16-63) Alkaline Phosphatase 99 U/L (46-116) Creatine Kinase 40 U/L (39-308) Creatine Kinase MB (Mass) 0.8 ng/mL (0.0-3.6) Creatine Kinase MB Relative Index 2.0 % (0-4) Troponin I Quantitative 0.094 ng/mL (0-0.055) 0.083 ng/mL (0-0.055) 0.086 ng/mL (0-0.055) [id number]-Type Natriuretic Peptide 2566 pg/mL (0-449) Total Protein 7.2 g/dL (6.4-8.2) Albumin 3.9 g/dL (3.4-5.0) Albumin/Globulin Ratio 1.2 (1.0-1.7) Lipase 97 U/L (73-393) Glucose (Fingerstick) 133 mg/dL (70-99) Test 18 20:31 08/21/17 08:17 08/21/17 20:11 18 05:33 Glucose (Fingerstick) 101 mg/dL (70-99) 139 mg/dL (70-99) Sodium Level 139 mmol/L (136-145) 143 mmol/L (136-145) Potassium Level 4.6 mmol/L (3.5-5.1) 3.8 mmol/L (3.5-5.1) Chloride Level 106 mmol/L (98-107) 108 mmol/L (98-107) Carbon Dioxide Level 23 mmol/L (21-32) 26 mmol/L (21-32) Anion Gap 10 (6-14) 9 (6-14) Blood Urea Nitrogen 14 mg/dL (8-26) 19 mg/dL (8-26) Creatinine 1.0 mg/dL (0.7-1.3) 1.2 mg/dL (0.7-1.3) Estimated GFR (Cockcroft-Gault) 71.0 57.5 Glucose Level 114 mg/dL (70-99) 101 mg/dL (70-99) Calcium Level 9.1 mg/dL (8.5-10.1) 8.6 mg/dL (8.5-10.1) Triglycerides Level 88 mg/dL (0-150) Cholesterol Level 114 mg/dL (0-200) LDL Cholesterol, Calculated 55 mg/dL (0-100) VLDL Cholesterol, Calculated 17 mg/dL (0-40) Non-HDL Cholesterol Calculated 72 mg/dL (0-129) HDL Cholesterol 42 mg/dL (40-60) Cholesterol/HDL Ratio 2.0 Test 08/22/17 07:33 Glucose (Fingerstick) 100 mg/dL (70-99) Medications Current Medications Sodium Chloride 500 ml @ 0 mls/hr 1X ONCE IV Last administered on 08/20/17at 11 :00; Start 08/20/17 at 11:00; Stop 08/20/17 at 11:01; Status DC Isosorbide Mononitrate (Imdur) 30 mg DAILY PO Last administered on 08/22/17at 07 :56; Start 08/21/17 at 09:00 Levothyroxine Sodium (Synthroid) 175 mcg DAILYAC PO Last administered on at 07:53; Start 08/21/17 at 07:30 Lisinopril (Prinivil) 20 mg DAILY PO Last administered on 08/22/17at 07:55; Start 08/21/17 at 09:00 Metoprolol Tartrate (Lopressor) 25 mg BID PO Last administered on 08/22/17 07: 54; Start 08/20/17 at 21:00 Apixaban (Eliquis) 5 mg BID PO Last administered on 08/22/17at 07:55; Start at 21:00 Atorvastatin Calcium (Lipitor) 40 mg QHS PO Last administered on 08/21/17at 21: 01; Start 08/20/17 at 21:00 Glipizide (Glucotrol) 5 mg BIDBFRMEAL PO Last administered on 08/22/17at 07:54; Start 08/20/17 at 16:30 Cetirizine HCl (ZyrTEC) 10 mg DAILY PO Last administered on 08/22/17 07:55; Start 08/21/17 at 09:00 Metformin HCl (Glucophage) 500 mg BIDWMEALS PO Last administered on 08/22/17 07:54; Start 08/20/17 at 17:00 Pantoprazole Sodium (Protonix) 40 mg BID PO Last administered on 08/22/17at 07: 55; Start 08/20/17 at 21:00 Linagliptin (Tradjenta) 5 mg DAILY PO Last administered on 08/22/17at 07:55; Start 08/21/17 at 09:00 Active Scripts Active Eliquis (Apixaban) 5 Mg Tablet 5 Mg PO BID 30 Days Reported Isosorbide Mononitrate Er (Isosorbide Mononitrate) 30 Mg Tab.er.24h 30 Mg PO DAILY Lisinopril 20 Mg Tablet 20 Mg PO DAILY Metformin Hcl 500 Mg Tablet 500 Mg PO BIDWMEALS Pantoprazole Sodium 40 Mg Tablet.dr 40 Mg PO BID Levothyroxine Sodium 175 Mcg Tablet 175 Mcg PO DAILYAC Januvia (Sitagliptin Phosphate) 100 Mg Tablet 1 Tab PO DAILY LAST DOSE GIVEN: DATE: TIME: NEXT DOSE DUE: DATE: RESTART TOMORROW TIME: AM Atorvastatin Calcium 40 Mg Tablet 1 Tab PO QHS LAST DOSE GIVEN: DATE: YESTERDAY TIME: AT BEDTIME NEXT DOSE DUE: DATE: TODAY TIME: AT BEDTIME Glipizide 5 Mg Tablet 1 Tab PO BID LAST DOSE GIVEN: DATE: TIME: NEXT DOSE DUE: DATE: RESTART TOMORROW TIME: AM Claritin (Loratadine) 10 Mg Tablet 1 Tab PO DAILY LAST DOSE GIVEN: DATE: TODAY TIME: AM NEXT DOSE DUE: DATE: TOMORROW TIME: AM Metoprolol Tartrate 25 Mg Tablet 1 Tab PO BID LAST DOSE GIVEN: DATE: TIME: AM NEXT DOSE DUE: DATE: TODAY TIME: PM Vitals/I & O Vital Sign - Last 24 Hours 08/21/17 08/21/17 08/21/17 08/21/17 10:25 14:59 19:00 21:01 Temp 98.1 98.5 98.2 Pulse 55 51 51 51 Resp 20 20 20 B/P (MAP) 174/69 (104) 137/64 (88) 163/66 (98) 163/66 Pulse Ox 94 94 93 O2 Delivery Room Air Room Air Room Air O2 Flow Rate 08/21/17 08/22/17 08/22/17 08/22/17 22:28 05:58 07:54 07:55 Temp 98.4 98.6 Pulse 58 75 75 75 Resp 20 20 B/P (MAP) 176/66 (102) 167/64 (98) 167/64 167/64 Pulse Ox 95 94 O2 Delivery Room Air Room Air 08/22/17 07:56 Pulse 75 B/P (MAP) 167/64 Intake and Output 08/21/17 08/21/17 08/22/17 15:00 23:00 07:00 Intake Total 540 ml 200 ml 0 ml Balance 540 ml 200 ml 0 ml PERLA VILLALBA APRN Aug 22, 2017 09:35
[2017-08-22] MEDS ORDERED: amLODIPine BESYLATE 5 MG TABLET PO SCH (10:00)
[2017-08-22 11:26] VITALS: BP 135/51
[2017-08-22 11:31] VITALS: BP 135/51
[2017-08-22] MEDS ORDERED: AMLO10TA2 PO (13:45)
--- NOTE | 2017-08-22 15:19 | DS ---
DATE OF DISCHARGE: 08/22/2017 HOSPITAL COURSE: The patient was admitted with recurrent bouts of nausea, vomiting, as they subsided, he was noted also to have an elevated troponin as well as poorly controlled hypertension, apparently his pacemaker was interrogated recently and was found to be functioning well. His blood pressure was suboptimally controlled, so we added amlodipine and blood pressure is much better controlled and a decision was made to discharge him home to follow up with his ____ information technology coordinator in 1-2 weeks' time at [facility]. PHYSICAL EXAMINATION: GENERAL: When I examined today, he looked well and was clearly in no apparent respiratory distress, pale, but no jaundice, cyanosis, or thyromegaly. No jugular venous distension. No limb edema. VITAL SIGNS: His heart rate was 51, blood pressure was 135/51, temperature was 98.6, respiratory rate was 18 and oxygen saturation was 93% on room air. HEAD, EYES, EARS, NOSE AND THROAT: Normocephalic, atraumatic. NECK: Supple. HEART: Showed normal first and second sounds. No gallop, rub or murmur. CHEST: Clear to auscultation. No crepitation or rhonchi. ABDOMEN: Distended, soft, nontender. No guarding or rigidity. No organomegaly. All hernial orifices intact. Bowel sounds normal. NEUROLOGIC: He was awake, alert, responding appropriately. Cranial nerves intact. He moves extremities without difficulty. He is very hard of hearing. Otherwise, his cranial nerves are intact. EXTREMITIES: He moves extremities without difficulty, ambulates without assistance or assistive devices. His intake and output incompletely recorded. LABORATORY DATA: As of yesterday showed a white cell count 5900, hemoglobin 13, hematocrit 40, MCV 86 and platelet count 206,000. As of this morning, his serum sodium was 143, potassium 3.8, chloride 108, bicarbonate 26, anion gap of 9, BUN 19, creatinine 1.2, estimated GFR was 57.5 mL per minute. His glucose was 101, calcium was 8.6. His fasting lipid profile showed serum triglycerides of 88. Total cholesterol 114, LDL cholesterol was 55, VLDL was 17, and HDL cholesterol was 72 and the ratio was 2. DISCHARGE MEDICATIONS: The patient was discharged home to continue on following medications: Amlodipine 10 mg once a day, apixaban 5 mg twice a day, atorvastatin calcium 40 mg at bedtime, glipizide 5 mg twice a day, isosorbide mononitrate 30 mg once a day, levothyroxine 175 mcg once a day, lisinopril 20 mg once a day, loratadine 10 mg once a day, metformin 500 mg twice a day with meals, metoprolol 25 mg twice a day, Protonix 40 mg twice a day and sitagliptin phosphate(Januvia) 100 mg once a day. FINAL DISCHARGE DIAGNOSES: 1. Elevated troponin, likely demand mediated. No acute significant ischemic symptoms or EKG changes, no anginal symptoms. The patient will follow with his primary information technology coordinator for outpatient ischemic workup. 2. Known peripheral arterial disease, status post aortobifemoral graft, stable. 3. Probable coronary artery disease. No prior catheterization. Last echo was normal with normal left ventricular ejection fraction in 04/2017. 4. Sick sinus syndrome with chronic atrial fibrillation status post dual chamber pacemaker, interrogated recently and functioning well. 5. Hypertension, much better controlled now with Norvasc. 6. Dyslipidemia, continued to be on Lipitor and lipid profile showed, it is well controlled. 7. Metabolic encephalopathy, resolved. RUEL VALADEZ MD DR: HEATHER/[facility]ita JOB#: [id number] / [id number]
[2017-08-23] MEDS ORDERED: LISINOPRIL 20 MG TABLET PO SCH (09:00)
== END 2017-08-22 14:02 | disposition home or self-care (01) | DRG 291 ==
LOC: ER 10:27 → 1 SOUTH 14:21
PROVIDERS: ADMIT Internal Medicine; ATTEND Internal Medicine
DX: I11.0 Hypertensive heart disease with heart failure (principal); G93.41 Metabolic encephalopathy; R11.2 Nausea with vomiting, unspecified; K59.09 Other constipation; E11.51 Type 2 diabetes mellitus with diabetic peripheral angiopathy without gangrene; E78.00 Pure hypercholesterolemia, unspecified; E78.5 Hyperlipidemia, unspecified; E89.0 Postprocedural hypothyroidism; I50.9 Heart failure, unspecified; I25.10 Atherosclerotic heart disease of native coronary artery without angina pectoris; H91.90 Unspecified hearing loss, unspecified ear; I48.2 Chronic atrial fibrillation; I49.5 Sick sinus syndrome; I70.0 Atherosclerosis of aorta; K21.9 Gastro-esophageal reflux disease without esophagitis; Z82.49 Family history of ischemic heart disease and other diseases of the circulatory system; Z86.79 Personal history of other diseases of the circulatory system; Z87.891 Personal history of nicotine dependence; Z95.0 Presence of cardiac pacemaker; Z98.41 Cataract extraction status, right eye; Z98.42 Cataract extraction status, left eye
CPT/HCPCS: 36415; 71045; 80048; 80053; 80061; 81001; 82553; 82947; 83690; 83880; 84484; 85007; 85025; 85610; 93005; 96360; J7040; 99285-25

== ENCOUNTER → 2018-07-11 | Outpatient (CLI) | payer MEDICARE, OTHER ==
[~2018-07-11] MED LIST changes: +AMLO10TA8 PO; +METF500T16 PO; -METF500T5 PO
--- NOTE | 2018-07-11 14:15 | RAD ---
RS Compliance Statement: One or more of the following individualized dose reduction techniques were utilized for this examination: 1. Automated exposure control 2. Adjustment of the mA and/or kV according to patient size 3. Use of iterative reconstruction technique CT head without contrast 07/11/2018 12:00 AM INDICATION: History of fall COMPARISON: None available TECHNIQUE: Multiple axial CT images of the head were obtained from skull base through the vertex without intravenous contrast. FINDINGS: Head: Ventricles, sulci and basal cisterns are prominent compatible with moderate generalized cerebral volume loss. Low-attenuation in the periventricular white matter is suggestive of chronic small vessel ischemic changes. There is no hydrocephalus. Raines-white matter differentiation is normal. There is no acute intracranial hemorrhage. There is no mass, mass effect or midline shift. Posterior fossa is normal in appearance. Visualized portions of the orbits are normal with history of bilateral lens replacement. Paranasal sinuses are well aerated. Mastoid air cells are well aerated. Scalp and calvaria are normal. IMPRESSION: No acute intracranial hemorrhage. Moderate generalized cerebral volume loss. Low-attenuation in the periventricular white matter is suggestive of chronic small vessel ischemic changes. Electronically signed by: Sravani Bang MD (07/11/2018 2:12 PM) [id number]
== END | disposition home or self-care (01) ==
LOC: PMG 13:36
PROVIDERS: ATTEND Family Medicine
DX: G93.89 Other specified disorders of brain (principal)
CPT/HCPCS: 70450

== ENCOUNTER → 2019-09-03 | Outpatient (CLI) | payer MEDICARE, OTHER ==
[~2019-09-03] MED LIST changes: -ASCO500T2 PO; +ASCO500T4 PO; -PANT40TA5 PO; +PANT40TA6 PO
--- NOTE | 2019-09-03 11:48 | RAD ---
PA and lateral views of the chest. Comparison: Chest radiograph dated 08/20/2017, 06/15/2016. Indication: Viral pneumonia Findings: Normal lung volume. Unchanged left pacemaker. Slight increase in perihilar predominant interstitial opacities. Pulmonary vascular indistinctness. No pleural effusion or pneumothorax. Unchanged borderline cardiomegaly. Unchanged atherosclerotic thoracic aorta. No acute osseous abnormality. Moderate multilevel degenerative changes of the visualized spine. IMPRESSION: Slight increase in perihilar predominant interstitial opacities. Findings may relate to mild pulmonary edema given the pacemaker and borderline cardiomegaly. Infectious process would be difficult to exclude. Electronically signed by: Randy Borussard MD (09/03/2019 11:45 AM) [id number]
== END ==
LOC: RAD 10:16
PROVIDERS: ATTEND Family Medicine
DX: J12.9 Viral pneumonia, unspecified (principal); I70.0 Atherosclerosis of aorta
CPT/HCPCS: 71046

== ENCOUNTER → 2019-11-13 | Outpatient (CLI) | payer MEDICARE, OTHER ==
--- NOTE | 2019-11-13 14:25 | RAD ---
EXAM: Head CT without contrast. HISTORY: Syncope. TECHNIQUE: Computed tomographic images of the head were obtained without contrast. *One or more of the following individualized dose reduction techniques were utilized for this examination: 1. Automated exposure control. 2. Adjustment of the mA and/or kV according to patient size. 3. Use of iterative reconstruction technique. COMPARISON: 07/11/2018. FINDINGS: There is no acute or subacute extra-axial or intraparenchymal hemorrhage. There is no mass effect or midline shift. There is no hydrocephalus. There are areas of decreased attenuation within the cerebral white matter, nonspecific and likely related to chronic small vessel disease. There is cerebral volume loss. The visualized portions of the orbits, paranasal sinuses and mastoid air cells are unremarkable. No suspicious calvarial lesion is seen. IMPRESSION: 1. No acute intracranial finding. Note is made that MRI is more sensitive for acute infarction. 2. Bilateral cerebral white matter changes, likely due to chronic small vessel disease. 3. Mild age-appropriate cerebral volume loss. Electronically signed by: Krystal Chan MD (11/13/2019 2:23 PM) [id number]
== END | disposition home or self-care (01) ==
LOC: CT 13:53
PROVIDERS: ATTEND Family Medicine
DX: I63.9 Cerebral infarction, unspecified (principal); R55 Syncope and collapse
CPT/HCPCS: 70450

== ENCOUNTER 2020-01-04 15:08 | Inpatient (IN) | payer MEDICARE, OTHER ==
[~2020-01-04] VITALS: Ht 182.9 cm; Wt 89.2 kg
[~2020-01-04 15:08] MED LIST changes: +AMLO-187 PO; -AMLO10TA8 PO
--- NOTE | 2020-01-04 15:33 | PHYS DOC ---
Past History Past Medical History: A-Fib, Anemia, CAD, Diabetes, GERD, High Cholesterol, Hypertension, Hyperthyroid, Other Past Surgical History: Pacemaker, Other Alcohol Use: None Drug Use: None Adult General Chief Complaint Chief Complaint: ALTERED MENTAL STATUS HPI HPI Patient is a 89-year-old male who presents via EMS for altered mental state. Initial report scant and provided by EMS personnel. Last known normal of patient was yesterday evening. Patient was found by daughter in his bed that was wet from urine. Patient had decreased mentation which is unusual for him prompting daughter to call another family member over for evaluation. Daughter and other family member were concerned after being unsuccessful in transferring patient out of bed prompting them to call EMS for transport over to our facility. In route, IV access obtained, patient alert, GCS 11 and maintaining airway. He is unable to speak incomprehensible words at this time Additional history obtained from daughter when she arrived to the ER. She states she is DPOA, reports patient is a full code. States patient has extremely complicated past medical history, has atrial fibrillation and is on Eliquis. Reports recent hospitalization in July 2019 for pneumonia and long rehabilitation course. Patient had prolonged catheter use and since discharge from hospital, has had symptoms of neurogenic bladder dysfunction. Patient typically walks and talks and lives in upper portion of daughter's house, he performs activities of daily living independently. He went to urologist yesterday for cystoscopy, results of this procedure were unknown. Daughter reports last known normal was yesterday evening. Unsure if patient has been taking his medications as he "acts and lives independently". No known falls or recent trauma, daughter reports only medication changes include discontinuation of insulin for oral alternative by PCP greater than 1 month ago and implementation of Lasix for bilateral lower extremity edema. Patient has not complained of any fever, no COVID-19 contacts or other symptoms reported per daughter Review of Systems Review of Systems Unobtainable due to patient mentation Allergies Allergies Allergies Coded Allergies Type Severity Reaction Last Updated Verified No Known Drug Allergies 06/21/17 No Physical Exam Physical Exam Constitutional: Pt is alert and oriented to person but not place or time. Pt appears overweight, poor overall hygiene, appears unkept HENT: Head: Normocephalic and atraumatic. Mouth/Throat: Oropharynx is clear and dry, poor dentition No hematomas or lacerations or abrasions to face or scalp OP clear, no blood, no malocclusion, dentition intact Nares clear, no nasal septal hematoma External ear is unremarkable, no salgado sign Midface stable Eyes: Conjunctivae and EOM are normal. Pupils are equal, round, and reactive to light. Neck: C-spine midline nontender, no step-offs, no meningeal signs negative Kernig and Brudzinski exams. Cardiovascular: Normal rate, regular rhythm and normal heart sounds. Pulmonary/Chest: Effort normal and breath sounds normal. No respiratory distress. No wheezes. CTA bilaterally Abdominal: Distended but soft. Bowel sounds are normal. There is no tenderness. Musculoskeletal: No bony tenderness to extremities, no deformities Chest wall stable Pelvis stable and non-tender No vertebral TTP and spine without stepoffs Neurological: Pt is alert and oriented to person only Moving all extremities willfully, able to wiggle all fingers and toes Sensation grossly intact Skin: Skin is warm and dry. No abrasions, no lacerations. Skin breakdown on ventral portions of bilateral feet, onychomycosis of bilateral toenails Psychiatric: Unable to accurately assess Nursing note and vitals reviewed. Current Patient Data Vital Signs Vital Signs Date Time Temp Pulse Resp B/P (MAP) Pulse Ox O2 Delivery O2 Flow Rate FiO2 01/03/20 16:10 75 228/85 Lab Results Laboratory Tests Test 01/04/20 15:19 01/04/20 15:21 01/04/20 15:35 White Blood Count 9.4 x10^3/uL (4.0-11.0) Red Blood Count 4.21 x10^6/uL (4.30-5.70) Hemoglobin 13.0 g/dL (13.0-17.5) Hematocrit 39.4 % (39.0-53.0) Mean Corpuscular Volume 94 fL (79-100) Mean Corpuscular Hemoglobin 31 pg (25-35) Mean Corpuscular Hemoglobin Concent 33 g/dL (31-37) Red Cell Distribution Width 15.5 % (11.5-14.5) Platelet Count 114 x10^3/uL (140-400) Neutrophils (%) (Auto) 96 % (31-73) Lymphocytes (%) (Auto) 2 % (24-48) Monocytes (%) (Auto) 2 % (0-9) Eosinophils (%) (Auto) 0 % (0-3) Basophils (%) (Auto) 0 % (0-3) Neutrophils # (Auto) 9.0 x10^3uL (1.8-7.7) Lymphocytes # (Auto) 0.2 x10^3/uL (1.0-4.8) Monocytes # (Auto) 0.2 x10^3/uL (0.0-1.1) Eosinophils # (Auto) 0.0 x10^3/uL (0.0-0.7) Basophils # (Auto) 0.0 x10^3/uL (0.0-0.2) Urine Collection Type Unknown Urine Color Yellow Urine Clarity Cloudy Urine pH 6.5 Urine Specific [place] 1.020 Urine Protein 100 mg/dl (NEG-TRACE) Urine Glucose (UA) >=1000 mg/dL (NEG) Urine Ketones (Stick) Neg mg/dL (NEG) Urine Blood Large (NEG) Urine Nitrite Neg (NEG) Urine Bilirubin Neg (NEG) Urine Urobilinogen Dipstick 0.2 mg/dL (0.2 mg/dL) Urine Leukocyte Esterase Small (NEG) Urine RBC Tntc /HPF (0-2) Urine WBC 11-20 /HPF (0-4) Urine Squamous Epithelial Cells None /LPF Urine Bacteria Many /HPF (0-FEW) Urine Opiates Screen Neg (NEG) Urine Methadone Screen Neg (NEG) Urine Barbiturates Neg (NEG) Urine Phencyclidine Screen Neg (NEG) Urine Amphetamine/Methamphetamine Neg (NEG) Urine Benzodiazepines Screen Neg (NEG) Urine Cocaine Screen Neg (NEG) Urine Cannabinoids Screen Neg (NEG) Urine Ethyl Alcohol Neg (NEG) Bedside Venous pH 4.43 (7.32-7.42) Bedside Venous pCO2 33 mmHg (41-51) Bedside Venous pO2 31 mmHg (20-40) Venous Blood HCO3 22 mmol/L (24-28) POC Venous O2 Saturation (Tru) 62 % Bedside FiO2 21 Prothrombin Time 12.1 SEC (9.4-11.4) Prothromb Time International Ratio 1.2 (0.9-1.1) Activated Partial Thromboplast Time 28 SEC (23-33) Sodium Level 142 mmol/L (136-145) Potassium Level 3.6 mmol/L (3.5-5.1) Chloride Level 104 mmol/L (98-107) Carbon Dioxide Level 23 mmol/L (21-32) Anion Gap 15 (6-14) Blood Urea Nitrogen 31 mg/dL (8-26) Creatinine 2.8 mg/dL (0.7-1.3) Estimated GFR (Cockcroft-Gault) 21.5 BUN/Creatinine Ratio 11 (6-20) Glucose Level 285 mg/dL (70-99) Lactic Acid Level 4.0 mmol/L (0.4-2.0) Calcium Level 9.6 mg/dL (8.5-10.1) Total Bilirubin 0.9 mg/dL (0.2-1.0) Aspartate Amino Transf (AST/SGOT) 33 U/L (15-37) Alanine Aminotransferase (ALT/SGPT) 40 U/L (16-63) Alkaline Phosphatase 87 U/L (46-116) Ammonia 18 mcmol/L (11-34) Creatine Kinase 274 U/L (39-308) BW-Yug-Z-Type Natriuretic Peptide 5514 pg/mL (0-449) Total Protein 7.6 g/dL (6.4-8.2) Albumin 3.5 g/dL (3.4-5.0) Albumin/Globulin Ratio 0.9 (1.0-1.7) EKG EKG EKG ordered and interpreted by myself at 1542 hrs. as wide-complex ventricular rhythm at 82 bpm, prolonged MT at 264, prolonged QRS at 140, prolonged QTC at 496, left axis deviation, trifascicular right bundle branch block, no STEMI Radiology/Procedures Radiology/Procedures PROCEDURE: CT HEAD WO CONTRAST Exam: CT head INDICATION: Decreased mentation TECHNIQUE: Sequential axial images through the head were obtained without the administration of IV contrast. Comparisons: 11/13/2019 FINDINGS: No focal parenchymal lesion or hemorrhage is identified. There is no midline shift or sulcal effacement. Mild patchy hypodensity in the periventricular white matter, not significant changed from prior exam. No acute vascular territory infarction is identified. Raines-white distinction is preserved. The ventricular system is within normal limits without compression hydrocephalus. The basal cisterns are well maintained. The visualized portions of the paranasal sinuses and mastoid air cells are well-pneumatized. No acute fractures. IMPRESSION: No acute intracranial abnormality. Exposure: One or more of the following in the visualized dose reduction techniques were utilized for this examination: 1. Automated exposure control 2. Adjustment of the MA and/or KV according to patient size Use of iterative of reconstructive technique Electronically signed by: Raj Haider MD (01/04/2020 3:54 PM) [facility] PROCEDURE: PORTABLE CHEST 1V KUB, PORTABLE CHEST 1V Clinical History: Reason: abd distension / Spl. Instructions: / History: Technique: AP view of the chest was obtained at 01/04/2020 3:22 PM. Comparison: September 03, 2019. Findings: The heart is mildly enlarged. The pulmonary vessels appear normal. Reticular opacities throughout the lungs is likely chronic. The pleural margins are clear. The left-sided trilead pacemaker is again seen. Impression: Mild cardiomegaly. Stable appearance of the chest. Electronically signed by: Ernesto Moran III, MD (01/04/2020 3:56 PM) [facility] PROCEDURE: KUB KUB, PORTABLE CHEST 1V Clinical History: Reason: abd distension / Spl. Instructions: / History: Technique: AP view of the chest was obtained at 01/04/2020 3:22 PM. Comparison: September 03, 2019. Findings: The heart is mildly enlarged. The pulmonary vessels appear normal. Reticular opacities throughout the lungs is likely chronic. The pleural margins are clear. The left-sided trilead pacemaker is again seen. Impression: Mild cardiomegaly. Stable appearance of the chest. Electronically signed by: Ernesto Moran III, MD (01/04/2020 3:56 PM) [facility] Heart Score HEART Score for Chest Pain: HEART Score for Chest Pain Response (Comments) Value History Slighlty/Non-Suspicious 0 ECG Normal 0 Age > 65 2 Risk Factors >3 Risk Factors or Hx CAD 2 Troponin < Normal Limit 0 Total 4 Risk Factors: Risk Factors: DM, Current or recent (<one month) smoker, HTN, HLP, family history of CAD, obesity. Risk Scores: Risk Factors: DM, Current or recent (<one month) smoker, HTN, HLP, family history of CAD, obesity. Course & Med Decision Making Course & Med Decision Making Pertinent Labs and Imaging studies reviewed. (See chart for details) Discussed most likely diagnosis of SIRS, hypoactive delirium, indicate kidney injury with daughter and stressed need for admission as she is POA, she was amenable Discussed case with on-call hospitalist, Dr. Cota, he reviewed the case and agreed for admission under his care at [facility] I updated plan of care with patient and daughter, they were amenable. 2 g Savage ephin and 1 L normal saline started prior to ER transport of stable patient to [facility] for continued medical care Dragon Disclaimer Dragon Disclaimer This electronic medical record was generated, in whole or in part, using a voice recognition dictation system. Departure Departure: Impression: Primary Impression: SIRS (systemic inflammatory response syndrome) Additional Impressions: Hypoactive delirium after surgical procedure BETH (acute kidney injury) Disposition: 09 ADMITTED INPT THIS HOSP ([facility]) Admitting Physician: Sreedhar Cota Condition: STABLE Referrals: FELICITA CHINCHILLA MD (PCP) Problem Qualifiers LUCRECIA MEI DO Jan 04, 2020 15:33
--- NOTE | 2020-01-04 15:57 | RAD ---
Exam: CT head INDICATION: Decreased mentation TECHNIQUE: Sequential axial images through the head were obtained without the administration of IV contrast. Comparisons: 11/13/2019 FINDINGS: No focal parenchymal lesion or hemorrhage is identified. There is no midline shift or sulcal effacement. Mild patchy hypodensity in the periventricular white matter, not significant changed from prior exam. No acute vascular territory infarction is identified. Raines-white distinction is preserved. The ventricular system is within normal limits without compression hydrocephalus. The basal cisterns are well maintained. The visualized portions of the paranasal sinuses and mastoid air cells are well-pneumatized. No acute fractures. IMPRESSION: No acute intracranial abnormality. Exposure: One or more of the following in the visualized dose reduction techniques were utilized for this examination: 1. Automated exposure control 2. Adjustment of the MA and/or KV according to patient size Use of iterative of reconstructive technique Electronically signed by: Raj Haider MD (01/04/2020 3:54 PM) [facility]
[2020-01-04 15:59] LABS: BASO % 0 % (0-3); EOS % 0 % (0-3); HEMATOCRIT 39.4 % (39.0-53.0); LYMPH # 0.2 x10^3/uL (1.0-4.8); LYMPH % 2 % (24-48); MEAN CORPUSCULAR HEMOGLOBIN 31 pg (25-35); MEAN CORPUSCULAR HGB CONC 33 g/dL (31-37); MEAN CORPUSCULAR VOLUME 94 fL (79-100); MONO # 0.2 x10^3/uL (0.0-1.1); MONO % 2 % (0-9); NEUT % 96 % (31-73); PLATELET COUNT 114 x10^3/uL (140-400); RED BLOOD COUNT 4.21 x10^6/uL (4.30-5.70); RED CELL DISTRIBUTION WIDTH 15.5 % (11.5-14.5); WHITE BLOOD COUNT 9.4 x10^3/uL (4.0-11.0)
--- NOTE | 2020-01-04 15:59 | RAD ---
KUB, PORTABLE CHEST 1V Clinical History: Reason: abd distension / Spl. Instructions: / History: Technique: AP view of the chest was obtained at 01/04/2020 3:22 PM. Comparison: September 03, 2019. Findings: The heart is mildly enlarged. The pulmonary vessels appear normal. Reticular opacities throughout the lungs is likely chronic. The pleural margins are clear. The left-sided trilead pacemaker is again seen. Impression: Mild cardiomegaly. Stable appearance of the chest. Electronically signed by: Ernesto Moran III, MD (01/04/2020 3:56 PM) [facility]
[2020-01-04] MEDS ORDERED: hydrALAZINE 20 MG/ML VIAL. IV ONE (16:00)
[2020-01-04 16:08] LABS: BARBITURATES NEG (NEG); BENZODIAZEPINES NEG (NEG); CANNABINOIDS NEG (NEG); COCAINE NEG (NEG); METHADONE NEG (NEG); OPIATES NEG (NEG); PHENCYCLIDINE NEG (NEG)
[2020-01-04 16:09] LABS: CALCIUM 9.6 mg/dL (8.5-10.1); CREATININE 2.8 mg/dL (0.7-1.3); GFR 21.5; POTASSIUM 3.6 mmol/L (3.5-5.1)
[2020-01-04 16:10] LABS: AMPHETAMINE/METHAMPHETAMINE NEG (NEG)
[2020-01-04 16:14] LABS: BILIRUBIN,URINE NEG (NEG); CLARITY,URINE CLOUDY; COLOR,URINE YELLOW; GLUCOSE,URINE >=1000 mg/dL (NEG)
[2020-01-04 16:15] LABS: BACTERIA,URINE MANY /HPF (0-FEW); NITRITE,URINE NEG (NEG); RBC,URINE TNTC /HPF (0-2); UROBILINOGEN,URINE 0.2 mg/dL (0.2 mg/dL)
[2020-01-04 16:21] LABS: ALBUMIN 3.5 g/dL (3.4-5.0); ALBUMIN/GLOBULIN RATIO 0.9 (1.0-1.7); TOTAL BILIRUBIN 0.9 mg/dL (0.2-1.0); TOTAL PROTEIN 7.6 g/dL (6.4-8.2)
--- NOTE | 2020-01-04 16:21 | EKG ---
[address] [address] Test Date: 2020-01-04 Test Time: 15:33:03 Pat Name: CECILIO CONTRERAS Department: Room: Gender: M Cell Tuber Machine: JERILYN : [id number] Requested By: LUCRECIA MEI Order Number: [id number] Reading MD: Deepak Cortes Measurements Intervals [place] Rate: 82 P: -73 OK: 264 QRS: -77 QRSD: 140 T: 95 QT: 422 QTc: 496 Interpretive Statements ATRIAL FIBRILLATION RIGHT BUNDLE BRANCH BLOCK Electronically Signed On 01-08-2020 11:03:44 SYNTHETIC FILAMENT EXTRUDER by Deepak Cortes
[2020-01-04] MEDS ORDERED: IV NORMAL SALINE 1,000ML 1,000 ML IV ONE (17:00)
[2020-01-04] MEDS ORDERED: IV NORMAL SALINE 100ML 100 ML ONE (17:10)
--- NOTE | 2020-01-04 18:38 | HP ---
ADMIT DATE: 01/04/2020 ATTENDING PHYSICIAN: Dr. Rivera. CHIEF COMPLAINT: Confusion. HISTORY OF PRESENT ILLNESS: The patient is an 89-year-old gentleman who lives with his adult daughter. He has been a . In the past, he has been fairly independent and spends half his time in [place], other time in [place], [place]. He has been in decline. Earlier this year in July, he had a prolonged hospitalization with pneumonia at the [facility]. He was stabilized. He went home. Yesterday, he had a urologic procedure by Dr. Carmona, the urologist, for urinary retention. They did not find significant prostate enlargement. He was started on Flomax. Today, he had increased confusion, really he ____ say much. The workup in the ED showed a fairly normal white count. Creatinine is at 2.8 mg percent, which is about baseline from chronic renal failure. He had a chest x-ray, which showed vascular congestion, but no pneumonia. Clinically, he appears to have the systemic inflammatory response syndrome, seen in elderly patients following typically a urologic procedure. Blood cultures have been drawn, empiric antibiotics have been given in the ED. He is admitted then for further evaluation, hydration and management of his chronic medical issues. PAST MEDICAL HISTORY: Also significant for chronic congestive heart failure, systolic; essential hypertension; paroxysmal atrial fibrillation; sick sinus syndrome; permanent pacemaker; pernicious anemia; history of remote GI bleed; poorly controlled diabetes. He is also on chronic anticoagulation. ALLERGIES: He has no recorded drug allergies. SOCIAL HISTORY: He was a smoker in the past. He does not drink any alcohol. CURRENT MEDICINES: Include amlodipine, Eliquis 5 mg b.i.d., Lipitor, glipizide, Imdur 30 mg daily, Synthroid, lisinopril, loratadine, metformin, metoprolol 25 mg b.i.d., Protonix, and Januvia. SOCIAL HISTORY: He is retired . His 10 years ago. He has been fairly active up until a year ago. He was driving his car and spending half the year in [place]. REVIEW OF SYSTEMS: Significant for the recent procedure. He could not give much history. He has been in decline. The daughter has been managing him and he had recent urologic procedure for urinary retention. All other systems were determined unrelated and unobtainable. PHYSICAL EXAMINATION: GENERAL: When I saw him, this is an elderly gentleman who mumbles some responses. He is not aware of what is going on. INITIAL VITAL SIGNS: Showed a blood pressure of 200 systolic, repeat was down to 170 systolic. Pulse is 75 and regular. He was afebrile. HEENT: Head is without trauma. Pupils are reactive. Sclerae nonicteric. Oropharynx clear. Mucous membranes are quite dry. NECK: Supple. I do not hear any bruits. LUNGS: Shallow respirations. CARDIOVASCULAR: Showed regular heart tones. No gallops. Peripheral pulses are palpable and weak. ABDOMEN: Obese, protuberant. No organomegaly. Bowel sounds are hypoactive. EXTREMITIES: Showed trace edema. NEUROLOGIC: The patient is bedridden. He is nonambulatory. He is not aware of person or time at this time. SKIN: Otherwise warm and dry. PERTINENT LABORATORY STUDIES: Hemoglobin is 13.0 g/dL, white count 9400, creatinine is 2.8 mg/dL, BUN 31. Electrolytes: Sodium 142 mEq, potassium 3.6. A troponin was measured at 0.121. Probably related to the stress demand as well as chronic kidney failure. BNP was ____ ASSESSMENT: 1. An 89-year-old gentleman has systemic inflammatory response syndrome following urologic procedure. 2. Neurogenic bladder with recent cystoscopy. 3. Paroxysmal atrial fibrillation. 4. 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 5. Chronic systolic congestive heart failure, compensated. 6. Chronic obstructive pulmonary disease. 7. Type 2 diabetes mellitus. PLAN: 1. Admit to the Intensive Care Unit. He remains a full code at this time. 2. Blood cultures and urine cultures are pending. 3. I will hold off his Eliquis until the hematuria in his [place] catheter has resolved. 4. We will continue his home meds, especially his blood pressure meds. 5. Diabetic diet as tolerated. 6. Frequent ____. 7. Serial chemistries. JONI RIVERA MD DR: MICHELE/vita JOB#: [id number] / [id number] FELICITA Verde MD
[2020-01-04] MEDS: IV NORMAL SALINE 1,000ML 1,000 ML IV SCH (20:00)
[2020-01-04 20:18] VITALS: BP 164/77
[2020-01-04 20:57] VITALS: BP 143/67
[2020-01-04 21:15] VITALS: BP 153/70
[2020-01-04 22:07] VITALS: BP 155/70
[2020-01-04] MEDS ORDERED: ASPI-424 PO (22:49)
[2020-01-04] MEDS ORDERED: TAMS0.4C97 PO (22:49)
[2020-01-04] MEDS ORDERED: FURO-69 PO (22:49)
[2020-01-04 23:00] VITALS: BP 130/88
[2020-01-05] VITALS (13 sets, daily range): BP systolic 102–159; BP diastolic 53–84
[2020-01-05] MEDS: IV NORMAL SALINE 1,000ML 1,000 ML IV SCH (04:51)
[2020-01-05 06:38] LABS: BASO # 0.1 x10^3/uL (0.0-0.2); BASO % 0 % (0-3); EOS % 0 % (0-3); HEMATOCRIT 38.5 % (39.0-53.0); HEMOGLOBIN 12.5 g/dL (13.0-17.5); LYMPH # 0.7 x10^3/uL (1.0-4.8); LYMPH % 4 % (24-48); MEAN CORPUSCULAR HEMOGLOBIN 31 pg (25-35); MEAN CORPUSCULAR HGB CONC 32 g/dL (31-37); MEAN CORPUSCULAR VOLUME 94 fL (79-100); MONO % 6 % (0-9); NEUT # 14.6 x10^3uL (1.8-7.7); NEUT % 90 % (31-73); PLATELET COUNT 118 x10^3/uL (140-400); RED CELL DISTRIBUTION WIDTH 16.1 % (11.5-14.5); WHITE BLOOD COUNT 16.3 x10^3/uL (4.0-11.0)
[2020-01-05 06:52] LABS: ALBUMIN/GLOBULIN RATIO 0.8 (1.0-1.7); CALCIUM 8.7 mg/dL (8.5-10.1); CREATININE 2.8 mg/dL (0.7-1.3); GFR 21.5; POTASSIUM 3.7 mmol/L (3.5-5.1); TOTAL BILIRUBIN 0.5 mg/dL (0.2-1.0); TOTAL PROTEIN 6.9 g/dL (6.4-8.2)
--- NOTE | 2020-01-05 10:52 | PN ---
DATE: 01/05/2020 ATTENDING PHYSICIAN: Dr. Rivera. SUBJECTIVE: The patient is awake today. He is a little hard of hearing. He remains a little bit daze, but we actually had a fairly normal conversation. He could tell me that he is retired [employer]. He knows about his home in [place], [place]. He told me his 10 years ago, so, whereas yesterday he was more of a catatonic state and unresponsive. He is much more alert today. OBJECTIVE FINDINGS: VITAL SIGNS: Blood pressure this morning is 132/62 mmHg. His pulse is 70, paced and regular. He was afebrile, oxygen saturation 95% on room air. HEENT: Head is without trauma. Pupils are reactive. Oropharynx clear. NECK: Supple. No stridor. Mucous membranes are less dry. LUNGS: Still has shallow respiration, but otherwise clear. CARDIOVASCULAR: Showed regular heart tones. No gallops. Peripheral pulses are palpable and full. ABDOMEN: Obese, protuberant. No organomegaly. No guarding or rebound tenderness. EXTREMITIES: Show trace edema. NEUROLOGIC: The patient is fairly alert. Speech is fluent. 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 He is still nonambulatory. SKIN: Otherwise, warm and dry. PERTINENT LABORATORY STUDIES: White count today is up from stress factors 16,300, hemoglobin 12.5 g/dL. Follow up electrolytes. Creatinine remains at 2.8 mg/dL, which is about baseline for him. BUN is 35. Nonfasting blood sugar 283. Cultures of blood and urine are still pending at this time. ASSESSMENT: 1. An 89-year-old gentleman with systemic inflammatory response syndrome following a urologic procedure. 2. 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 3. Neurogenic bladder with recent procedure. 4. Permanent pacemaker. 5. History of paroxysmal atrial fibrillation. 6. Chronic systolic congestive heart failure. 7. Chronic obstructive pulmonary disease. 8. Type 2 diabetes mellitus. 9. Chronic anticoagulation and hematuria. PLAN: 1. We will continue IV antibiotics as ordered, pending cultures. 2. I have held the Eliquis and we may start him back on a lower dose given his renal clearance. 3. I have held his blood pressure meds until BP improved. 4. Advance diabetic diet. He can get up in a chair. He seems better neurologically today. 5. Serial chemistries. JONI RIVERA MD DR: MICHELE/vita JOB#: [id number] / [id number]
[2020-01-05] MEDS ORDERED: DEXTROSE 50% 25 GM / 50ML DISP.SYRIN. IV PRN (11:15)
[2020-01-05] MEDS: LACTOBACILLUS RHAMNOSUS GG 1 CAPSULE. PO SCH ×2 (12:12→20:37)
[2020-01-05] MEDS: INSULIN LISPRO 300 UNITS/3 ML VIAL. SQ SCH ×3 (12:13→21:40)
[2020-01-06 05:09] VITALS: BP 142/74
[2020-01-06 07:13] LABS: BASO % 0 % (0-3); EOS # 0.1 x10^3/uL (0.0-0.7); EOS % 1 % (0-3); HEMATOCRIT 34.8 % (39.0-53.0); HEMOGLOBIN 11.5 g/dL (13.0-17.5); LYMPH # 0.7 x10^3/uL (1.0-4.8); LYMPH % 6 % (24-48); MEAN CORPUSCULAR HEMOGLOBIN 31 pg (25-35); MEAN CORPUSCULAR HGB CONC 33 g/dL (31-37); MEAN CORPUSCULAR VOLUME 93 fL (79-100); MONO # 0.7 x10^3/uL (0.0-1.1); MONO % 6 % (0-9); NEUT # 10.8 x10^3uL (1.8-7.7); NEUT % 88 % (31-73); PLATELET COUNT 118 x10^3/uL (140-400); RED BLOOD COUNT 3.75 x10^6/uL (4.30-5.70); RED CELL DISTRIBUTION WIDTH 16.5 % (11.5-14.5); WHITE BLOOD COUNT 12.3 x10^3/uL (4.0-11.0)
[2020-01-06 07:26] LABS: ALBUMIN 2.9 g/dL (3.4-5.0); ALBUMIN/GLOBULIN RATIO 0.8 (1.0-1.7); CALCIUM 8.4 mg/dL (8.5-10.1); CREATININE 2.7 mg/dL (0.7-1.3); GFR 22.5; POTASSIUM 3.9 mmol/L (3.5-5.1); TOTAL BILIRUBIN 0.4 mg/dL (0.2-1.0); TOTAL PROTEIN 6.5 g/dL (6.4-8.2)
[2020-01-06] MEDS: LACTOBACILLUS RHAMNOSUS GG 1 CAPSULE. PO SCH ×2 (08:12→20:44)
[2020-01-06] MEDS: INSULIN LISPRO 300 UNITS/3 ML VIAL. SQ SCH ×4 (08:12→20:46)
[2020-01-06] MEDS: POLYETHYLENE GLYCOL 3350 17 GM PACKET. PO SCH (10:11)
[2020-01-06 11:17] VITALS: BP 165/83
[2020-01-06] MEDS: LISINOPRIL 20 MG TABLET PO SCH (11:36)
[2020-01-06] MEDS: METOPROLOL TART IMMED RELEASE 25 MG TABLET. PO SCH ×2 (11:36→20:45)
[2020-01-06 16:00] VITALS: BP 151/83
--- NOTE | 2020-01-06 17:00 | PN ---
DATE: 01/06/2020 ATTENDING PHYSICIAN: Dr. Rivera. SUBJECTIVE: The patient is alert. He is having a normal conversation. Speech is fluent. He knows where he is. He told me, however, today was 02/04. OBJECTIVE FINDINGS: 06/08 blood cultures are now positive for gram-negative rods, most likely this will be E. coli. The identification and sensitivity of the isolate will not be available until tomorrow. VITAL SIGNS: Blood pressure today is improved to 142/74 mmHg. He is afebrile with a temperature of 97.2 degrees Fahrenheit, pulse is 70 and paced. Oxygen saturation 97% on room air. HEENT: Head is without trauma. Pupils are reactive. Sclerae are nonicteric. Oropharynx is clear. NECK: Supple, no bruits identified. LUNGS: Otherwise clear with good breath sounds. CARDIOVASCULAR: Showed regular heart tones. No gallops. ABDOMEN: Soft, scaphoid, nontender, no organomegaly. Bowel sounds are hypoactive. EXTREMITIES: Showed trace edema. NEUROLOGIC FINDINGS: Focally intact. No deficits. PERTINENT LABORATORY STUDIES: Creatinine is down slightly to 2.7 mg/dL after holding his diuretics. Sodium is 139 mEq. Hemoglobin maintained 11.5 g/dL with white count of 12,000. ASSESSMENT: 1. Gram-negative septicemia following a urologic procedure. 2. Systemic inflammatory response syndrome. 3. [id number] renal failure, stage 4. 4. Neurogenic bladder. 5. Permanent pacemaker. 6. History of paroxysmal atrial fibrillation. 7. Chronic anticoagulation. 8. Type 2 diabetes. 9. Chronic obstructive pulmonary disease. 10. Hematuria. PLAN: 1. We will continue IV antibiotics as ordered. It will cover any E. coli species. We are awaiting the identification and sensitivity of the isolate. 2. I have held his Eliquis due to hematuria. I spoke with the daughter, we may start at a lower dose given his renal clearance. 3. Blood pressure meds have been held and improved. 4. Diabetic diet. 5. Serial chemistries. 6. Discharge planning pending ID and sensitivity of antibiotics and we can set up the duration of treatment for oral antibiotics and followup visit. JONI RIVERA MD DR: MICHELE/vita JOB#: [id number] / [id number]
[2020-01-06 19:41] VITALS: BP 135/66
[2020-01-06 23:38] VITALS: BP 138/73
[2020-01-07 05:53] VITALS: BP 165/80
[2020-01-07 06:35] LABS: BASO % 0 % (0-3); EOS % 0 % (0-3); HEMATOCRIT 34.3 % (39.0-53.0); HEMOGLOBIN 11.4 g/dL (13.0-17.5); LYMPH # 0.8 x10^3/uL (1.0-4.8); LYMPH % 8 % (24-48); MEAN CORPUSCULAR HEMOGLOBIN 31 pg (25-35); MEAN CORPUSCULAR HGB CONC 33 g/dL (31-37); MEAN CORPUSCULAR VOLUME 93 fL (79-100); MONO # 0.3 x10^3/uL (0.0-1.1); MONO % 3 % (0-9); NEUT % 88 % (31-73); PLATELET COUNT 113 x10^3/uL (140-400); RED BLOOD COUNT 3.69 x10^6/uL (4.30-5.70); RED CELL DISTRIBUTION WIDTH 16.8 % (11.5-14.5); WHITE BLOOD COUNT 10.2 x10^3/uL (4.0-11.0)
[2020-01-07 06:49] LABS: ALBUMIN 2.9 g/dL (3.4-5.0); ALBUMIN/GLOBULIN RATIO 0.8 (1.0-1.7); CALCIUM 7.8 mg/dL (8.5-10.1); CREATININE 2.2 mg/dL (0.7-1.3); GFR 28.5; TOTAL BILIRUBIN 0.3 mg/dL (0.2-1.0); TOTAL PROTEIN 6.6 g/dL (6.4-8.2)
[2020-01-07 07:26] LABS: % BANDS 1 % (0-9); % LYMPHS 6 % (24-48); % MONOS 5 % (0-10); % SEGS 88 % (35-66)
[2020-01-07 07:29] LABS: PLT ESTIMATE DECREASED (ADEQUATE)
[2020-01-07] MEDS: METOPROLOL TART IMMED RELEASE 25 MG TABLET. PO SCH (08:12)
[2020-01-07] MEDS: POLYETHYLENE GLYCOL 3350 17 GM PACKET. PO SCH (08:12)
[2020-01-07 08:13] VITALS: BP 165/80
[2020-01-07] MEDS: LISINOPRIL 20 MG TABLET PO SCH (08:13)
[2020-01-07] MEDS: LACTOBACILLUS RHAMNOSUS GG 1 CAPSULE. PO SCH (08:13)
[2020-01-07] MEDS: INSULIN LISPRO 300 UNITS/3 ML VIAL. SQ SCH (08:15)
--- NOTE | 2020-01-07 11:16 | DS ---
DATE OF DISCHARGE: 01/07/2020 ATTENDING PHYSICIAN: Dr. Rivera. FINAL DISCHARGE DIAGNOSES: 1. Systemic inflammatory response syndrome. 2. Klebsiella bacteremia. 3. Urinary tract infection. 4. Recent cystoscopy and manipulation. 5. Gross hematuria related to blood thinners, resolved. 6. 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 7. Neurogenic bladder. 8. Permanent pacemaker. 9. Paroxysmal atrial fibrillation. 10. Chronic anticoagulation. 11. Type 2 diabetes. 12. Chronic obstructive pulmonary disease. HISTORY AND PHYSICAL: This 89-year-old gentleman had been at independent care for by her daughter at home, presented with confusion, altered mentation and generalized weakness. He had a recent cystoscopy the day before. He was admitted with systemic inflammatory response syndrome. PHYSICAL EXAMINATION: Please see the dictated note. PERTINENT LABORATORY AND X-RAY STUDIES: Blood cultures 4 sets were positive for Klebsiella pneumoniae, same identical species in urine cultures. It was pansensitive to the antibiotics registered. The hemoglobin was 13.0 g/dL, white count 10,000. Chemistry panel ordered daily. Creatinine had been 2.8, improved to 2.2 mg/dL, with a BUN of 42, potassium 4.0. Nonfasting blood sugar 250. This will be followed as an outpatient. COURSE IN THE HOSPITAL: The patient was admitted. We kept the Hopson catheter in. He was started on empiric antibiotics in the form of Rocephin. He received 4 full days of antibiotics. He did well. His mentation came back to baseline. He was able to ambulate with minimal 1:1 assistance. Diet was advanced. We held his Eliquis, hematuria resolved. Hopson catheter was subsequently removed. On the fourth hospital day, the patient was alert. He wanted to go home. I felt this is reasonable. His blood pressure this morning was 160/80, pulse 78 and regular, temperature 98.5 degrees Fahrenheit, oxygen saturation 94% on room air. Lungs were clear. Hear exam was regular. He had no focal deficits. Speech was fluent. Therefore, on the fourth hospital day, the patient was discharged home with cephalexin 500 mg p.o. 3 times a day for 7 more days. We cut back his Eliquis dose to 2.5 mg b.i.d. I recommended he continue his amlodipine 10 mg daily, Lipitor 40 mg daily, glipizide 5 mg b.i.d., Synthroid 175 mcg daily, lisinopril 20 mg daily, metformin 500 b.i.d., metoprolol 25 b.i.d., Januvia 100 mg daily and Flomax 0.4 mg at bedtime. Eliquis has been cut back to 2.5 mg daily. We stopped his Lasix and aspirin. I suggested a followup visit in 7-[address] Archie Hernandez. Instructions and prescriptions were given. He was discharged from our hospital in stable condition with explicit instructions and followup care. Total discharge time spent 41 minutes. JONI RIVERA MD DR: MICHELE/vita JOB#: [id number] / [id number] ARCHIE Verde MD
== END 2020-01-07 11:35 | disposition home or self-care (01) | DRG 862 ==
LOC: ER 15:08 → ICU 16:50
PROVIDERS: ADMIT Hospitalist; ATTEND Hospitalist
DX: T81.44XA Sepsis following a procedure, initial encounter (principal); A41.50 Gram-negative sepsis, unspecified; N17.0 Acute kidney failure with tubular necrosis; I13.0 Hypertensive heart and chronic kidney disease with heart failure and stage 1 through stage 4 chronic kidney disease, or unspecified chronic kidney disease; I50.22 Chronic systolic (congestive) heart failure; N18.4 Chronic kidney disease, stage 4 (severe); N39.0 Urinary tract infection, site not specified; B96.1 Klebsiella pneumoniae [K. pneumoniae] as the cause of diseases classified elsewhere; E11.22 Type 2 diabetes mellitus with diabetic chronic kidney disease; E78.00 Pure hypercholesterolemia, unspecified; H91.90 Unspecified hearing loss, unspecified ear; K21.9 Gastro-esophageal reflux disease without esophagitis; I48.0 Paroxysmal atrial fibrillation; I25.10 Atherosclerotic heart disease of native coronary artery without angina pectoris; J44.9 Chronic obstructive pulmonary disease, unspecified; N31.9 Neuromuscular dysfunction of bladder, unspecified; R31.0 Gross hematuria; Z79.01 Long term (current) use of anticoagulants; Z79.84 Long term (current) use of oral hypoglycemic drugs; Z79.890 Hormone replacement therapy; Z79.899 Other long term (current) drug therapy; Z87.891 Personal history of nicotine dependence; I49.5 Sick sinus syndrome; E05.90 Thyrotoxicosis, unspecified without thyrotoxic crisis or storm; Z95.0 Presence of cardiac pacemaker
CPT/HCPCS: 36415; 70450; 71045; 74018; 80053; 80307; 81001; 82140; 82550; 82803; 82947; 83605; 83880; 84484; 85007; 85025; 85610; 85730; 87040; 87077; 87086; 87205; 93005; 96374; J0360; J0696; J1815; 97530; 99285-25; J7030

== ENCOUNTER → 2020-02-19 | Outpatient (CLI) | payer MEDICARE, OTHER ==
[~2020-02-19] MED LIST changes: +ASPI-424 PO; +FURO-69 PO; +TAMS0.4C97 PO
--- NOTE | 2020-02-19 11:51 | RAD ---
PQRS Compliance Statement: One or more of the following individualized dose reduction techniques were utilized for this examinat ion: 1. Automated exposure control 2. Adjustment of the mA and/or kV according to patient size 3. Use of iterative reconstruction technique CT abdomen/pelvis without contrast 02/19/2020 10:55 AM INDICATION: Hematuria, abdominal pain COMPARISON: CT abdomen/pelvis 06/22/2017 TECHNIQUE: Multiple axial CT images of the abdomen and pelvis were obtained without intravenous contr ast. Coronal and sagittal reformats are provided. FINDINGS: There is a stable 4.5 mm solid noncalcified pulmonary nodule along the right hemidiaphragm (series 2, image 24), presumed benign given 2 year stability. Heart size is borderline enlarged. Thre e-vessel coronary artery vascular calcifications are present. Cardiac pacer wires are partially profi led. There is a small pericardial effusion which is increased. Evaluation of the solid abdominal viscera is limited by the lack of intravenous contrast. Liver, sple en, bilateral adrenal glands and pancreas are normal in appearance. Cholelithiasis. There is no adjac ent inflammation. There is an infrarenal abdominal aortic aneurysm status post endovascular repair measuring 3.3 x 3.1 cm, stable. No pathologically enlarged lymph nodes are identified in abdomen and pelvis. No free flui d or free intraperitoneal air. Small and large bowel are normal in caliber. No bowel obstruction or inflammation. Trace free fluid i dentified in the left paracolic gutter. Appendix is normal in appearance. No bowel obstruction or inf lammation. Bilateral innumerable renal cortical and parapelvic cysts are identified similar to prior examination . There is interval decrease in size of a superior pole left renal cyst measuring 12.4 x 8.4 cm, prev iously seen 16.5 x 10.5 cm. There is moderate bilateral hydroureteronephrosis without definite transi tion point. Mild circumferential bladder wall thickening may be secondary to cystitis versus chronic outlet obstruction. Prostatomegaly with TURP defect measuring at least 5.5 x 5.0 cm in transaxial dim ensions. Stable sclerotic density involving the left iliac bone which could reflect a bone infarct. N o suspicious osseous abnormality. IMPRESSION: 1. Prostatomegaly with TURP defect measuring at least 5.5 x 5.0 cm. Mild circumferential bladder wal l thickening may be secondary to cystitis versus chronic outlet obstruction. 2. There is moderate bilateral hydroureteronephrosis without definite transition point. Findings may be secondary to chronic bladder outlet obstruction versus pyelitis/cystitis. 3. Stable infrarenal abdominal aortic aneurysm status post endovascular repair. 4. Cholelithiasis without adjacent inflammation. 5. Small pericardial effusion is increased. 6. Stable 4.5 mm solid noncalcified pulmonary nodule along the right hemidiaphragm, presumed benign given 2 year stability. Electronically signed by: Sravani Bang MD (02/19/2020 11:48 AM) [id number]
== END ==
LOC: DXRAD 10:41
PROVIDERS: ATTEND Family Medicine
DX: K80.20 Calculus of gallbladder without cholecystitis without obstruction (principal); I71.4 Abdominal aortic aneurysm, without rupture; I31.3 Pericardial effusion (noninflammatory); I25.10 Atherosclerotic heart disease of native coronary artery without angina pectoris; N28.1 Cyst of kidney, acquired; N13.30 Unspecified hydronephrosis; R91.1 Solitary pulmonary nodule; R31.9 Hematuria, unspecified
CPT/HCPCS: 74176